=== PATIENT | male | born 1935 | race Caucasian/White ===

== ENCOUNTER 2016-08-10 16:01 | Emergency (ER) | payer MEDICARE, BC ==
[~2016-08-10] VITALS: Ht 177.8 cm; Wt 65.0 kg
[~2016-08-10 16:01] MED LIST: ADVAIR DISKU IN; AMOXICILLIN500 MG OR; CLONAZEPAM1 MG PO; DIGOXIN0.125 MG PO; DIGOXIN0.25 MG PO; FLEXERIL10 MG PO; FLONASE NASAL50 MCG; HYTRIN2 MG PO; IBUPROFEN800 MG PO; LIPITOR10 MG PO; LOPRESSOR 550 MG/TAB PO; LOPRESSOR25 M1 PO; LOPRESSOR50 M1 PO; LORTAB 7.5 PO; LYRICA50 MG PO; MEDDOSEPAK PO; METFORMIN500 MG PO; METOPROLOL SUCC50 MG OR; MIRALAX3350 N1 PO; OMEPRAZOLE20 M1 PO; PLAVIX75 MG PO; RESTORIL7.5 MG PO; ROCEPHIN 1 GM1 GM PO; TRICOR145 MG PO; XYZAL5 MG PO; ZPAK PO; ZYRTEC10 MG PO; [UNRECOGNIZED DRUG - OTHER] VI; [UNRECOGNIZED DRUG - OTHER] XX
[2016-08-10] MEDS ORDERED: METOPROLOL SUCC50 MG PO ×2 (16:25→16:28)
[2016-08-10] MEDS ORDERED: AMLODIPINE5 MG PO (16:25)
[2016-08-10] MEDS ORDERED: DIGOXIN0.125 MG PO ×2 (16:26→16:27)
[2016-08-10 16:59] LABS: HEMATOCRIT 33.4 % (39.0-50.0); HEMOGLOBIN 11.1 g/dl (14.0-18.0); IMMATURE GRANULOCYTES 0.3 % (0.0-1.0); MEAN CELL VOLUME 89.3 fL CALC (80.0-100.0); MEAN CORPUSCULAR HGB 29.7 pG CALC (26.0-32.0); MEAN CORPUSCULAR HGB CONC 33.2 g/L CALC (32.0-36.0); NEUT# 3.82 thou/uL (1.82-7.42); RED BLOOD COUNT 3.74 mill/uL (4.70-6.10); RED CELL DISTRI WIDTH 13.6 % (11.5-15.5)
[2016-08-10 17:12] LABS: ALBUMIN 4.2 g/dL (3.2-5.0); ALKALINE PHOSPHATASE 47 u/l (38-126); ANION GAP 17 (6-22 (CALC)); BILIRUBIN, TOTAL 0.5 mg/dL (0.0-1.4); BUN 21 mg/dL (8-23); BUN/CREATININE RATIO 20 (12-20 (CALC)); CALCIUM 10.7 mg/dL (8.4-10.2); CARBON DIOXIDE 29 mmol/l (22-30); CHLORIDE 100 mmol/l (95-108); CREATININE 1.1 mg/dL (0.7-1.3); GFR > 60 ML/MIN (>=60 (CALC)); GFR FOR AFR.AMER. > 60 ML/MIN (>=60 (CALC)); GLUCOSE 108 mg/dL (82-115); POTASSIUM 4.1 mmol/l (3.5-5.1); SGOT/AST 25 u/l (19-48); SGPT/ALT 40 u/l (11-66); SODIUM 141 mmol/l (137-146); TOTAL PROTEIN 6.9 g/dL (6.3-8.2)
[2016-08-10 17:45] LABS: BARBITURATES NEGATIVE (NEGATIVE); COCAINE NEGATIVE (NEGATIVE); METHADONE NEGATIVE (NEGATIVE); OXCYCODONE NEGATIVE (NEGATIVE); TETRAHYDROCANNABIONOL NEGATIVE (NEGATIVE); TRICYLIC ANTIDEPRESSANTS NEGATIVE (NEGATIVE)
[2016-08-10] MEDS ORDERED: XANAX0.25 MG PO (18:12)
[2016-08-10 18:18] LABS: URINE BILIRUBIN - DIPSTICK NEGATIVE (NEGATIVE); URINE BLOOD DIPSTICK NEGATIVE (NEGATIVE); URINE CLARITY CLEAR; URINE COLOR YELLOW; URINE GLUCOSE - DIPSTICK NEGATIVE (NEGATIVE); URINE KETONE NEGATIVE (NEGATIVE); URINE LEUK ESTERASE NEGATIVE (NEGATIVE); URINE NITRITE - DIPSTICK NEGATIVE (Negative); URINE PH 6.5 (4.5-8.0); URINE PROTEIN - DIPSTICK NEGATIVE (NEG-TRACE); URINE UROBILINOGEN - DIPSTICK 0.2 E.U./dL (0.2)
[2016-08-10 18:40] VITALS: BP 141/74
== END 2016-08-10 18:40 | disposition home or self-care (01) ==
LOC: ED 16:01
PROVIDERS: Emergency Medicine
DX: F32.9 Major depressive disorder, single episode, unspecified (principal); I10 Essential (primary) hypertension; E11.9 Type 2 diabetes mellitus without complications; Z95.0 Presence of cardiac pacemaker; Z98.890 Other specified postprocedural states

== ENCOUNTER → 2017-12-03 | Outpatient (REF) | payer MEDICARE, BC ==
[~2017-12-03] MED LIST changes: +AMLODIPINE5 MG PO; +METOPROLOL SUCC50 MG PO; +XANAX0.25 MG PO
[2017-12-03 08:24] LABS: ANION GAP 15 (6-22 (CALC)); BUN 20 mg/dL (8-23); BUN/CREATININE RATIO 20 (12-20 (CALC)); CARBON DIOXIDE 28 mmol/l (22-30); CHLORIDE 101 mmol/l (95-108); GFR > 60 ML/MIN (>=60 (CALC)); GFR FOR AFR.AMER. > 60 ML/MIN (>=60 (CALC)); POTASSIUM 3.9 mmol/l (3.5-5.1); SODIUM 141 mmol/l (137-146)
== END | disposition home or self-care (01) ==
LOC: LAB 06:44
PROVIDERS: ATTEND Internal Medicine
DX: R53.81 Other malaise (principal); E11.42 Type 2 diabetes mellitus with diabetic polyneuropathy; I10 Essential (primary) hypertension

== ENCOUNTER → 2018-04-09 | Outpatient (REF) | payer MEDICARE, BC | END | disposition home or self-care (01) | LOC: CT 09:37 | PROVIDERS: ATTEND Nurse Practitioner Family | DX: R05 Cough (principal) ==

== ENCOUNTER → 2018-04-16 | Outpatient (REF) | payer MEDICARE, BC | END | disposition home or self-care (01) | LOC: RT 07:41 | PROVIDERS: ATTEND Internal Medicine | DX: R05 Cough (principal) ==

== ENCOUNTER 2019-03-25 | Day surgery (SDC) | payer MEDICARE ==
[~2019-03-25] MED LIST changes: +ARNUITY EL50 MCG/ACT; +CLOBETASOL0.05 % EX; +IRON PO; +LEVOCETIRIZINE D5 MG; +LIPITOR80 M1 PO; +MONTELUKAST SOD10 MG PO; +OMEPRAZOLE DR40 MG; +PROAIR DIG108 MCG/AC IN; +SG ASA LOW81 M1 PO
== END 2019-03-25 11:40 | disposition home or self-care (01) ==
PROC: 0DB68ZX Excision of Stomach, Via Natural or Artificial Opening Endoscopic, Diagnostic (ICD-10-PCS; principal; 2019-03-25)
PROC: 0DB78ZX Excision of Stomach, Pylorus, Via Natural or Artificial Opening Endoscopic, Diagnostic (ICD-10-PCS; 2019-03-25)
PROC: 0DJD8ZZ Inspection of Lower Intestinal Tract, Via Natural or Artificial Opening Endoscopic (ICD-10-PCS; 2019-03-25)
DX: K29.51 Unspecified chronic gastritis with bleeding (principal); B96.81 Helicobacter pylori [H. pylori] as the cause of diseases classified elsewhere; K31.7 Polyp of stomach and duodenum; K44.9 Diaphragmatic hernia without obstruction or gangrene; K57.31 Diverticulosis of large intestine without perforation or abscess with bleeding; K64.8 Other hemorrhoids; E11.9 Type 2 diabetes mellitus without complications; I10 Essential (primary) hypertension; Z79.84 Long term (current) use of oral hypoglycemic drugs

== ENCOUNTER 2019-07-07 07:51 | Inpatient (IN) | payer MEDICARE ==
[~2019-07-07] VITALS: Ht 177.8 cm; Wt 64.0 kg
[2019-07-07 09:03] LABS: MEAN CELL VOLUME 94.8 fL CALC (80.0-100.0); MEAN CORPUSCULAR HGB CONC 29.5 g/dL CAL (32.0-36.0); RED BLOOD COUNT 2.11 mill/uL (4.70-6.10); RED CELL DISTRI WIDTH 17.8 % (11.5-15.5)
[2019-07-07 09:16] LABS: HEMOGLOBIN 5.9 g/dl (14.0-18.0)
[2019-07-07 09:33] LABS: ALBUMIN 3.7 g/dL (3.2-5.0); ALKALINE PHOSPHATASE 71 u/l (38-126); ANION GAP 15 (6-22 (CALC)); BILIRUBIN, TOTAL 0.5 mg/dL (0.0-1.4); BUN 15 mg/dL (8-23); BUN/CREATININE RATIO 16 (12-20 (CALC)); CALCULATED LDLCHOLESTEROL 32 mg/dL (62-129 (CALC)); CARBON DIOXIDE 24 mmol/l (22-30); CHLORIDE 98 mmol/l (95-108); CHOLESTEROL HDL RATIO 3.7 (<4.4 (CALC)); GFR > 60 ML/MIN (>=60 (CALC)); GFR FOR AFR.AMER. > 60 ML/MIN (>=60 (CALC)); HDL CHOLESTEROL 24 mg/dL (>=40); SGOT/AST 18 u/l (19-48); SODIUM 134 mmol/l (137-146); TOTAL CHOLESTEROL 89 mg/dl (0-199); TOTAL PROTEIN 6.1 g/dL (6.3-8.2); TOTAL TRIGLYCERIDES 163 mg/dl (30-149); VLDL CHOLESTROL 33 mg/dl (0-38 (CALC))
--- NOTE | 2019-07-07 14:00 | NUR ---
PT IS A DIRECT ADMIT. PT ORIENTED TO ROOM, CALL LIGHT, TV AND LIGHT REMOTE. PT ALSO ORIENTED TO BED CONTROLS. POC REVIEWED WITH PT. PT IS ABLE TO MAKE HIS NEEDS KNOWN. ALERT AND ORIENTED X 4. FOAM RUBBER FABRICATOR WILL CONTINUE TO MONITOR.
[2019-07-07 14:21] VITALS: BP 127/59
[2019-07-07] MEDS ORDERED: PROTONIX40 M2 PO (15:38)
[2019-07-07] MEDS ORDERED: BREO ELLIPTA 101 INH IN (15:40)
[2019-07-07] MEDS ORDERED: BUDESONID2 IN (15:41)
[2019-07-07] MEDS ORDERED: FERR SULFATE325 MG PO (15:42)
[2019-07-07] MEDS ORDERED: METOPROL TAR25 MG PO (15:42)
--- NOTE | 2019-07-07 16:29 | NUR ---
PT RESTING COMFORTABLY IN ROOM. URINE COLLECTED FOR URINALYSIS. PT C/O AIR CONDITIONER BEING TOO NOISY. NIKOLAS NOTIFIED MAINTAINANCE.
[2019-07-07 17:13] LABS: URINE BILIRUBIN - DIPSTICK NEGATIVE (NEGATIVE); URINE BLOOD DIPSTICK NEGATIVE (NEGATIVE); URINE CLARITY CLEAR; URINE COLOR YELLOW; URINE GLUCOSE - DIPSTICK NEGATIVE (NEGATIVE); URINE KETONE NEGATIVE (NEGATIVE); URINE LEUK ESTERASE NEGATIVE (Negative); URINE NITRITE - DIPSTICK NEGATIVE (Negative); URINE PH 5.5 (4.5-8.0); URINE PROTEIN - DIPSTICK NEGATIVE (NEG-TRACE); URINE UROBILINOGEN - DIPSTICK 0.2 E.U./dL (0.2)
--- NOTE | 2019-07-07 17:49 | NUR ---
ENVIRONMENTAL MONITORING SPECIALIST CALLED LAB TO FIND OUT WHEN BLOOD WOULD BE READY FOR EXECUTIVE ACCOUNT MANAGER. ENVIRONMENTAL MONITORING SPECIALIST NOTIFIED BY OS THAT BLOOD SHOULD BE READY BY 1999.
[2019-07-07 19:00] VITALS: BP 126/59
[2019-07-07 20:02] LABS: HEMATOCRIT 16.2 % (39.0-50.0); HEMOGLOBIN 4.9 g/dl (14.0-18.0)
--- NOTE | 2019-07-07 20:45 | NUR ---
PT MEDICATED ORDERS PROVIDE. RECEIVED PHONE CALL FROM LAB REPORTING BLOOD IS READY TO BE PICKED UP
[2019-07-07 20:55] VITALS: BP 144/65
--- NOTE | 2019-07-07 21:16 | NUR ---
FIRST UNIT OF PRBC STARTED AT THIS TIME. PT INSTRUCTED ON REPORTING SYMPTOMS, POSS NEG REACTIONS. PT VERBALIZED UNDERSTANDING.
[2019-07-07 21:28] VITALS: BP 139/70
--- NOTE | 2019-07-07 21:30 | NUR ---
PT V/S ASSESSED FOR 15 MINUTES INTO TRANSFUSION. PT DENIES ANY ADVERSE SYMPTOMS AND APPEARS STABLE, NO S/O DISTRESS NOTED. INSTRUCTED PT TO CALL ANY NEEDS MAY ARISE. PT VERBALIZED UNDERSTANDING OF POSS NEG AFFECTS.
[2019-07-07 22:13] VITALS: BP 143/63
--- NOTE | 2019-07-07 23:22 | NUR ---
PT APPEARS STABLE, NO S/O DISTRESS. AWOKE TO MY ENTERING ROOM, DENIED ANY NEEDS AT THIS TIME.
[2019-07-07 23:39] VITALS: BP 137/80
[2019-07-08] VITALS (10 sets, daily range): BP systolic 131–158; BP diastolic 63–82
--- NOTE | 2019-07-08 00:39 | NUR ---
FIRST UNIT OF PRBC COMPLETED AT THIS TIME. PT V/S ASSESSED, DENIES ANY S/O REACTION. PT APPEARS STABLE.
--- NOTE | 2019-07-08 01:07 | NUR ---
ATTEMPTS WERE MADE TO OBTAIN BLOOD FROM LAB, DIFFICULTY W/COMPUTER, I WAS INSTRUCTED THAT THEY WILL CALL WHEN AVAILABLE. AWAITING AVAILABILITY.
--- NOTE | 2019-07-08 01:27 | NUR ---
2ND UNIT OF PRBC STARTED AT THIS TIME. WILL DIRECTLY MONITOR PT FOR 15 MINUTES, FOLLOW-UP W/VS. AND CONTINUE TO MONITOR CLOSELY THERAFTER. PT REMINDED OF S/O REACTION TO WATCH FOR. VERBALIZED UNDERSTANDING.
--- NOTE | 2019-07-08 01:42 | NUR ---
V/S REASSESSED AT THIS TIME. PT STABLE. DENIES ANY DISTRESS OR NEEDS. URINAL
--- NOTE | 2019-07-08 02:27 | NUR ---
V/S ASSESSED AT THIS TIME. PT SLEEPING, NO S/O DISTRESS NOTED. PT AWOKE, DENIED ANY NEEDS.
--- NOTE | 2019-07-08 04:07 | NUR ---
PT SLEEPING, NO S/O DISTRESS NOTED. PRBC ARE STILL RUNNING TO LAC/SITE APPEARS HEALTHY.
--- NOTE | 2019-07-08 04:53 | NUR ---
2ND UNIT OF PRBC TRANSFUSION COMPLETE AT THIS TIME. PT TOLERATED WELL. DENIES ANY DESTRESS. V/S STABLE.
[2019-07-08 07:22] LABS: HEMOGLOBIN 8.7 g/dl (14.0-18.0); IMMATURE GRANULOCYTES 0.4 % (0.0-5.0); MEAN CORPUSCULAR HGB CONC 32.2 g/dL CAL (32.0-36.0); NEUT# 2.82 thou/uL (1.82-7.42); RED CELL DISTRI WIDTH 15.9 % (11.5-15.5)
[2019-07-08 08:04] LABS: ALBUMIN 3.4 g/dL (3.2-5.0); ALKALINE PHOSPHATASE 64 u/l (38-126); ANION GAP 11 (6-22 (CALC)); BILIRUBIN, TOTAL 0.7 mg/dL (0.0-1.4); BUN 13 mg/dL (8-23); BUN/CREATININE RATIO 14 (12-20 (CALC)); CARBON DIOXIDE 27 mmol/l (22-30); CHLORIDE 101 mmol/l (95-108); CREATININE 0.9 mg/dL (0.7-1.3); GFR > 60 ML/MIN (>=60 (CALC)); GFR FOR AFR.AMER. > 60 ML/MIN (>=60 (CALC)); POTASSIUM 3.7 mmol/l (3.5-5.1); SGOT/AST 20 u/l (19-48); SODIUM 135 mmol/l (137-146); TOTAL PROTEIN 5.7 g/dL (6.3-8.2)
--- NOTE | 2019-07-08 10:41 | NUR ---
TELE JAPANESE PROFESSOR JUST REPORTED 30 SECS V-TACH, PT ASSESED, NO C/O DISCOMFORT, RESTING IN SUPINE POSITION, VS MEASURED = 97.5, 71, 18, 148/82, 96% R/A ASYMPTOMATIC AT THIS TIME, NOTIFIED AND WROTE ORDERS.
--- NOTE | 2019-07-08 12:00 | NUR ---
AMBLATES HALLWAY FREQUENTLY, GIAT STEADY, NO C/O DISCOMFORT,
--- NOTE | 2019-07-08 12:35 | NUR ---
MEDICAL TEAM ROUNDED DISCUSSED PLAN, WROTE ORDERS, PT STATED UNDERSTANDING.
[2019-07-08 12:46] LABS: HEMATOCRIT 27.7 % (39.0-50.0); HEMOGLOBIN 8.9 g/dl (14.0-18.0)
[2019-07-08 13:03] LABS: ANION GAP 10 (6-22 (CALC)); BUN 13 mg/dL (8-23); BUN/CREATININE RATIO 14 (12-20 (CALC)); CARBON DIOXIDE 28 mmol/l (22-30); CHLORIDE 101 mmol/l (95-108); CREATININE 0.9 mg/dL (0.7-1.3); GFR > 60 ML/MIN (>=60 (CALC)); GFR FOR AFR.AMER. > 60 ML/MIN (>=60 (CALC)); MAGNESIUM 1.8 mg/dL (1.6-2.3); POTASSIUM 3.9 mmol/l (3.5-5.1); SODIUM 135 mmol/l (137-146)
--- NOTE | 2019-07-08 16:00 | NUR ---
RELAXING IN BED, ALL NEEDS MET.
[2019-07-08 18:24] LABS: HEMATOCRIT 30.1 % (39.0-50.0); HEMOGLOBIN 9.6 g/dl (14.0-18.0)
--- NOTE | 2019-07-08 19:05 | NUR ---
REPORT FROM BENSON RUBALCAVA. PT NOTED SITTING UP IN BED. ALERT AND ORIENTED. NO APPARENT DISTRESS NOTED. PT DENIES ANY PAIN OR DISCOMFORT AT THIS TIME. IV SITE APPEARS HEALTHY. DISCUSSED POC. PT VERBALIZED UNDERSTANDING. CALL LIGHT WITHIN REACH. WILL CONTINUE TO MONITOR.
--- NOTE | 2019-07-08 23:16 | NUR ---
PT RESTING IN BED WITH EYES CLOSED. NO APPARENT DISTRESS NOTED. CALL LIGHT WITHIN REACH. WILL CONTINUE TO MONITOR.
[2019-07-09 00:28] LABS: HEMATOCRIT 26.2 % (39.0-50.0); HEMOGLOBIN 8.2 g/dl (14.0-18.0)
--- NOTE | 2019-07-09 03:07 | NUR ---
PT RESTING IN BED WITH EYES CLOSED. NO APPARENT DISTRESS NOTED. CALL LIGHT WITHIN REACH. WILL CONTINUE TO MONITOR.
[2019-07-09 03:40] VITALS: BP 148/62
[2019-07-09 07:05] LABS: HEMATOCRIT 28.5 % (39.0-50.0)
[2019-07-09 07:12] VITALS: BP 154/81
--- NOTE | 2019-07-09 07:12 | NUR ---
PT AMBULATING IN ROOM. A&O X3. NO DISTRESS NOTED. PT WISHING TO AMBULATE IN HALLWAY, MASK GIVEN. STEADY GAIT OBSERVED. PT DENIES ANY WEAKNESS OR DIZZINESS AT THIS TIME. ASSESSMENT COMPLETED. DISCUSSED POC. CALL LIGHT IN REACH. CONTINUE TO MONITOR.
[2019-07-09 11:12] VITALS: BP 140/47
--- NOTE | 2019-07-09 12:22 | NUR ---
D/C INSTRUCTIONS GIVEN TO PT, PT VERBALIZED UNDERSTANDING. IV INTACT UPON REMOVAL.
--- NOTE | 2019-07-09 12:30 | NUR ---
Discharge instructions given. Patient verbalizes understanding of same. Discharged in stable condition via ambulatory to home with staff. All belongings sent with pt.
== END 2019-07-09 12:31 | disposition home or self-care (01) | DRG 811 ==
LOC: LAB 07:51 → INF 07:51 → MS2 13:07
PROVIDERS: Nurse Practitioner; Nurse Practitioner Family; ADMIT Internal Medicine; ATTEND Internal Medicine
PROC: 30233N1 Transfusion of Nonautologous Red Blood Cells into Peripheral Vein, Percutaneous Approach (ICD-10-PCS; principal; 2019-07-07)
PROC: 30233N1 Transfusion of Nonautologous Red Blood Cells into Peripheral Vein, Percutaneous Approach (ICD-10-PCS; 2019-07-07)
DX: D50.0 Iron deficiency anemia secondary to blood loss (chronic) (principal); K55.21 Angiodysplasia of colon with hemorrhage; I47.2 Ventricular tachycardia; E11.9 Type 2 diabetes mellitus without complications; I10 Essential (primary) hypertension; I25.10 Atherosclerotic heart disease of native coronary artery without angina pectoris; Z95.0 Presence of cardiac pacemaker; Z87.891 Personal history of nicotine dependence; Z79.84 Long term (current) use of oral hypoglycemic drugs
CPT/HCPCS: P9016

== ENCOUNTER 2020-01-05 10:57 | Observation (INO) | payer MEDICARE ==
[~2020-01-05] VITALS: Ht 177.8 cm; Wt 60.0 kg
[~2020-01-05 10:57] MED LIST changes: +BREO ELLIPTA 101 INH IN; +BUDESONID2 IN; +FERR SULFATE325 MG PO; +METOPROL TAR25 MG PO; +PROTONIX40 M2 PO
--- NOTE | 2020-01-05 11:10 | NUR ---
PATIENT TO ROOM VIA WHEELCHAIR AND PHYSICIAN NOTIFIED OF PATIENT STATUS
[2020-01-05 11:46] LABS: HEMATOCRIT 35.5 % (39.0-50.0); HEMOGLOBIN 11.4 g/dl (14.0-18.0); IMMATURE GRANULOCYTES 0.6 % (0.0-5.0); MEAN CELL VOLUME 94.2 fL CALC (80.0-100.0); MEAN CORPUSCULAR HGB 30.2 pG CALC (26.0-32.0); MEAN CORPUSCULAR HGB CONC 32.1 g/dL CAL (32.0-36.0); NEUT# 15.95 thou/uL (1.82-7.42); RED BLOOD COUNT 3.77 mill/uL (4.70-6.10); RED CELL DISTRI WIDTH 13.6 % (11.5-15.5)
[2020-01-05 12:07] LABS: ALBUMIN 4.4 g/dL (3.2-5.0); ALKALINE PHOSPHATASE 71 u/l (38-126); ANION GAP 14 (6-22 (CALC)); BUN 14 mg/dL (8-23); BUN/CREATININE RATIO 15 (12-20 (CALC)); CARBON DIOXIDE 30 mmol/l (22-30); CHLORIDE 98 mmol/l (95-108); CREATININE 0.9 mg/dL (0.7-1.3); GFR > 60 ML/MIN (>=60 (CALC)); GFR FOR AFR.AMER. > 60 ML/MIN (>=60 (CALC)); POTASSIUM 4.6 mmol/l (3.5-5.1); SGOT/AST 25 u/l (19-48); SODIUM 137 mmol/l (137-146); TOTAL PROTEIN 7.2 g/dL (6.3-8.2)
[2020-01-05 12:08] LABS: BILIRUBIN, TOTAL 1.1 mg/dL (0.0-1.4)
--- NOTE | 2020-01-05 12:30 | NUR ---
VITALS STABLE ON MONITOR. WARM BLANKET PROVIDED. IV MEDS AND INFUSING WITHOUT COMPLICATIONS. AT BEDSIDE.
[2020-01-05 13:04] LABS: URINE BILIRUBIN - DIPSTICK NEGATIVE (NEGATIVE); URINE BLOOD DIPSTICK MODERATE (NEGATIVE); URINE COLOR YELLOW; URINE GLUCOSE - DIPSTICK NEGATIVE (NEGATIVE); URINE KETONE NEGATIVE (NEGATIVE); URINE LEUK ESTERASE SMALL (NEGATIVE); URINE NITRITE - DIPSTICK POSITIVE (Negative); URINE PH 7.5 (4.5-8.0); URINE PROTEIN - DIPSTICK 30 mg/dL (NEG-TRACE); URINE SPECIFIC GRAVITY 1.015; URINE UROBILINOGEN - DIPSTICK 0.2 E.U./dL (0.2)
[2020-01-05 13:12] LABS: URINE BACTERIA MANY hpf; URINE WBC 20-50 WBC/hpf (0-5)
--- NOTE | 2020-01-05 13:30 | NUR ---
PT BED LINENS CHANGED DUE TO EXCESSIVE URINATION. REMAINS AT BEDSIDE. VITALS STABLE ON MONITOR.
--- NOTE | 2020-01-05 14:30 | NUR ---
PT REMOVED IV. ATTEMPTED TO RESTART. ONE EPISODE OF VOMITING. CONTINUING TO MONITOR.
[2020-01-05] MEDS ORDERED: GABAPENTIN100 MG PO (14:38)
--- NOTE | 2020-01-05 15:27 | NUR ---
PT RESTING. NO DISTRESS. VITALS STABLE.
--- NOTE | 2020-01-05 16:30 | NUR ---
PT RESTING. AT BEDSIDE. BED IN LOW POSITION.
--- NOTE | 2020-01-05 17:30 | NUR ---
IV FLUIDS CONTINUE TO INFUSE WITHOUT DIFFICULTY.
--- NOTE | 2020-01-05 18:22 | NUR ---
ER CALL REPORT AT THIS TIME BRINGING PATIENT VIA WHEELCHAIR TO UNIT.
--- NOTE | 2020-01-05 18:23 | NUR ---
REPORT CALLED TO M/S
[2020-01-05 18:30] VITALS: BP 200/88
--- NOTE | 2020-01-05 18:30 | NUR ---
PATIENT RECEIVED BY ED. PATIENT ORIENTED TO ROOM, CALL LIGHT AND BED ALARM IN PLACE. PATIENT DENIES ANY NEEDS AND VERBALIZES UNDERSTANDING OF USING CALL LIGHT FOR ALL ASSISTANCE.
--- NOTE | 2020-01-05 19:21 | NUR ---
PT LAYING IN BED WITH EYES CLOSED. NO S/O DISTRESS NOTED AT THIS TIME. WILL FOLLOW-UP WITH ASSESSMENT AND MEDICATIONS. CALL LIGHT AT SIDE.
[2020-01-05 20:06] VITALS: BP 183/90
--- NOTE | 2020-01-05 20:35 | NUR ---
ASSESSMENT COMPLETED AND PT MEDICATED ORDERS PROVIDE. PT IS LOC X3, BUT HAS MILD CONFUSION. HE IS UNABLE TO ANSWER MOST OF MY ADMISSION QUESTIONS AND IS VERY HARD OF HEARING. UNABLE TO TELL ME WHEN HIS LAST BM WAS. ASSISTED PT DRINK WATER, BUT HE REFUSED HIS DINNER TRAY OR ANY SNACK AT THIS TIME. DINNER TRAY AT BEDSIDE UNTOUCHED.
--- NOTE | 2020-01-05 23:40 | NUR ---
BED ALARM SOUNDED, PT FOUND ATTEMPTING TO GET OUT OF BED TO USE URINAL. ASSISTED PT USING URINAL 200CC OF CLEAR YELLOW URINE OUTPUT. BEDDING AND GOWN ARE ALSO WET. PT CLEANED OF URINE AND BEDDING/GOWN CHANGED. PT IS BACK IN BED WITH BED ALARM ON AND CALL LIGHT AT SIDE.
[2020-01-06] VITALS (7 sets, daily range): BP systolic 132–169; BP diastolic 56–89
--- NOTE | 2020-01-06 02:00 | NUR ---
IV SOUNDING, SITE IS POSITIONAL, ASSISTED PT UNTANGLING TUBING AND STRAIGHTENING ARM. NO S/O DISTRESS, PT WAS SLEEPING. CALL LIGHT AT SIDE AND BED ALARM IS ON.
--- NOTE | 2020-01-06 04:34 | NUR ---
PT SLEEPING, NO S/O DISTRESS NOTED. IVPUMP CLEARED. BED ALARM ON AND CALL LIGHT AT SIDE.
[2020-01-06 06:08] LABS: HEMATOCRIT 36.9 % (39.0-50.0); HEMOGLOBIN 11.8 g/dl (14.0-18.0); MEAN CELL VOLUME 94.6 fL CALC (80.0-100.0); MEAN CORPUSCULAR HGB 30.3 pG CALC (26.0-32.0); NEUT# 14.61 thou/uL (1.82-7.42); RED BLOOD COUNT 3.9 mill/uL (4.70-6.10); RED CELL DISTRI WIDTH 13.8 % (11.5-15.5)
[2020-01-06 06:31] LABS: ALBUMIN 3.8 g/dL (3.2-5.0); ALKALINE PHOSPHATASE 72 u/l (38-126); ANION GAP 14 (6-22 (CALC)); BILIRUBIN, TOTAL 1.4 mg/dL (0.0-1.4); BUN 13 mg/dL (8-23); BUN/CREATININE RATIO 15 (12-20 (CALC)); CARBON DIOXIDE 25 mmol/l (22-30); CHLORIDE 103 mmol/l (95-108); CREATININE 0.8 mg/dL (0.7-1.3); GFR > 60 ML/MIN (>=60 (CALC)); GFR FOR AFR.AMER. > 60 ML/MIN (>=60 (CALC)); MAGNESIUM 1.7 mg/dL (1.6-2.3); POTASSIUM 3.7 mmol/l (3.5-5.1); SGOT/AST 24 u/l (19-48); SODIUM 138 mmol/l (137-146); TOTAL PROTEIN 6.3 g/dL (6.3-8.2)
--- NOTE | 2020-01-06 07:26 | NUR ---
PATEINT IN BED RESTING WITH EYES OPEN. PATIENT ALERT TO NAME AND PLACE AT THIS TIME STATES HAS NO PAIN. SAFETY MEASURES ARE IN PLACE CALL LIGHT NEAR, SIDERAILS UPX2 BED ALARM ENGAGED.
--- NOTE | 2020-01-06 08:08 | NUR ---
AT BEDSIDE DISCUSSING POC.
--- NOTE | 2020-01-06 10:03 | NUR ---
PT SPOUSE NOTIFIED OF NEED FOR HOME BREO TO BE BROUGHT IN FOR VERIFICATION AND ADMINISTARTION AND VERBALIZES UNDERSTANDING.
--- NOTE | 2020-01-06 11:42 | NUR ---
BLOOD PRESSURE TAKEN AT THIS TIME WITH MANUAL CUFF: BP 158/72.
--- NOTE | 2020-01-06 11:48 | NUR ---
PATIENT LAYING IN BED AT THIS TIME. DENIES ALL NEEDS AT BEDSIED CALL LIGHT NEAR SIDERAILS UP AT THIS TIME.
--- NOTE | 2020-01-06 15:33 | NUR ---
PATIENT IN BED AT THIS TIME DENIES ANY NEEDS. ALL SAFETY MEASURES ARE IN PLACE SIDERAILS UP X 2 CALL LIGHT NEAR.
--- NOTE | 2020-01-06 19:46 | NUR ---
PT SLEEPING AT THIS TIME. IVF RUNNING @75 TO LAC, SITE APPEARS PATENT AND HEALTHY. NO S/O DISTRESS NOTED. CALL LIGHT W/IN REACH. DINNER TRAY AT BEDSIDE UNTOUCHED. WHEN PT AWAKES I WILL ENCOURAGE PT TO EAT AND ASSIST NEEDED.
--- NOTE | 2020-01-06 21:21 | NUR ---
PT CLEANED OF INCONTNINENT URINE, 100CC OF DARK YELLOW URINE IN URINAL AT BEDSIDE. BEDDING CHANGED AT THIS TIME DUE TO URINE SPILLAGE. PT MEDICATED ORDERS PROVIDE WITH PM MEDICATIONS. ACCU CHECK 119, INSULIN HELD AT THIS TIME. DINNER TRAY AT BS, PT REFUSES ANY OF IT. DENIES NAUSEA AT THIS TIME. CALL LIGHT AT SIDE AND PT ENCOURAGED TO CALL NEEDS ARISE. BED ALARM PLACED ON.
--- NOTE | 2020-01-06 22:35 | NUR ---
IV PUMP SOUNDING. I REMINDED PT TO STRAIGHTEN HIS ARM OUT, IV IS POSITIONAL. HE FOLLOWED COMMAND. NO S/O DISTRESS NOTED, PT IS SLEEPING. CALL LIGHT AT SIDE.
[2020-01-07 00:07] VITALS: BP 122/52
[2020-01-07 03:52] VITALS: BP 157/72
[2020-01-07 05:38] LABS: MEAN CELL VOLUME 95.2 fL CALC (80.0-100.0); MEAN CORPUSCULAR HGB 30.7 pG CALC (26.0-32.0); MEAN CORPUSCULAR HGB CONC 32.2 g/dL CAL (32.0-36.0); RED BLOOD COUNT 3.13 mill/uL (4.70-6.10)
--- NOTE | 2020-01-07 05:40 | NUR ---
PT CLEANED OF INCONTINENT URINE AND PROVIDED YOSELYN-CARE. BEDDING CHANGED AT THIS TIME. PT TOLERATED WELL. LIGHTS ARE BACK OFF AND CALL LIGHT AT SIDE WITH BED ALARM ON.
[2020-01-07 05:42] LABS: HEMATOCRIT 29.8 % (39.0-50.0); HEMOGLOBIN 9.6 g/dl (14.0-18.0)
[2020-01-07 06:02] LABS: ANION GAP 8 (6-22 (CALC)); BUN 14 mg/dL (8-23); BUN/CREATININE RATIO 13 (12-20 (CALC)); CARBON DIOXIDE 28 mmol/l (22-30); CHLORIDE 105 mmol/l (95-108); CREATININE 1.1 mg/dL (0.7-1.3); GFR > 60 ML/MIN (>=60 (CALC)); GFR FOR AFR.AMER. > 60 ML/MIN (>=60 (CALC)); MAGNESIUM 1.8 mg/dL (1.6-2.3); POTASSIUM 3.4 mmol/l (3.5-5.1); SODIUM 136 mmol/l (137-146)
--- NOTE | 2020-01-07 07:10 | NUR ---
REPORT RECEIVED FROM KHADAR NOLAND. PT RESTING IN BED, NO S/S OF DISTRESS AT THIS TIME. SAFETY PRECAUTIONS IN PLACE. WILL CONTINUE TO MONITOR.
--- NOTE | 2020-01-07 08:48 | NUR ---
PT RESTING IN BED, AT THE BEDSIDE. PT BOOSTED UP IN BED AND REPOSTIONED FOR BREAKFAST. PT IS ALERT AND ORIENTED TO PERSON AND PLACE. RESPIRATIONS ARE EVEN AND UNLABORED ON RA. LUNGS SOUND CLEAR. PEDAL PULSES ARE STRONG. PT DENIES ANY PAIN OR DISCOMFORT AT THIS TIME. SAFETY PRECAUTIONS IN PLACE. WILL CONTINUE TO MONITOR.
[2020-01-07 09:14] VITALS: BP 152/71
[2020-01-07] MEDS ORDERED: ERTAPENEM1 GM IV (10:19)
[2020-01-07 11:02] VITALS: BP 146/75
--- NOTE | 2020-01-07 12:01 | NUR ---
PT RESTING IN BED. AT BEDSIDE. NO S/S OF DISTRESS AT THIS TIME. WILL CONTINUE TO MONITOR.
[2020-01-07 16:01] VITALS: BP 168/66
--- NOTE | 2020-01-07 16:20 | NUR ---
PT RESTING IN BED, AT BEDSIDE. PT PROVIDED WITH DISCHARGE TEACHING, PT DENIES ANY CONCERNS OR QUESTIONS. IV STAYING IN PLACE PER MD ORDERS.
--- NOTE | 2020-01-07 16:33 | NUR ---
Discharge instructions given. Patient verbalizes understanding of same. Discharged in stable condition via Wheelchair to Home with spouse. All belongings sent with pt.
== END 2020-01-07 16:37 | disposition home health service (06) ==
LOC: ED 10:57 → ED-I 13:25 → ED 13:25 → ED-I 14:45 → ED 16:06 → MS2 16:07
PROVIDERS: Family Medicine; Nurse Practitioner; ADMIT Internal Medicine; ATTEND Internal Medicine
DX: A41.9 Sepsis, unspecified organism (principal); N39.0 Urinary tract infection, site not specified; I10 Essential (primary) hypertension; E11.9 Type 2 diabetes mellitus without complications; I49.5 Sick sinus syndrome; E87.2 Acidosis; I25.10 Atherosclerotic heart disease of native coronary artery without angina pectoris; B96.20 Unspecified Escherichia coli [E. coli] as the cause of diseases classified elsewhere; Z95.0 Presence of cardiac pacemaker; Z16.12 Extended spectrum beta lactamase (ESBL) resistance; Z79.84 Long term (current) use of oral hypoglycemic drugs; Z87.891 Personal history of nicotine dependence; Z20.828 Contact with and (suspected) exposure to other viral communicable diseases
CPT/HCPCS: J1335; J1650

== ENCOUNTER 2020-10-27 13:10 | Outpatient (REF) | payer MEDICARE ==
[~2020-10-27 13:10] MED LIST changes: +ERTAPENEM1 GM IV; +GABAPENTIN100 MG PO
== END 2020-10-27 15:24 | disposition home or self-care (01) ==
LOC: MSOP 13:10 → INF 13:30 → MSOP 15:24
PROVIDERS: ATTEND Internal Medicine
DX: N18.1 Chronic kidney disease, stage 1 (principal); D50.9 Iron deficiency anemia, unspecified
CPT/HCPCS: Q0138

== ENCOUNTER 2021-01-01 16:31 | Emergency (ER) | payer MEDICARE ==
[~2021-01-01] VITALS: Ht 177.8 cm; Wt 70.0 kg
[2021-01-01 17:24] LABS: IMMATURE GRANULOCYTES 0.2 % (0.0-5.0); MEAN CELL VOLUME 96.5 fL CALC (80.0-100.0); MEAN CORPUSCULAR HGB 27.7 pG CALC (26.0-32.0); MEAN CORPUSCULAR HGB CONC 28.7 g/dL CAL (32.0-36.0); NEUT# 4.02 thou/uL (1.82-7.42); RED BLOOD COUNT 1.73 mill/uL (4.70-6.10); RED CELL DISTRI WIDTH 15.4 % (11.5-15.5)
[2021-01-01 17:27] LABS: HEMATOCRIT 16.7 % (39.0-50.0); HEMOGLOBIN 4.8 g/dl (14.0-18.0)
[2021-01-01 17:38] LABS: PROTHROMBIN TIME 10.8 SECONDS (9.0-12.5)
[2021-01-01 17:41] LABS: ALBUMIN 3.8 g/dL (3.2-5.0); ALKALINE PHOSPHATASE 43 u/l (38-126); ANION GAP 12 (6-22 (CALC)); BILIRUBIN, TOTAL 0.4 mg/dL (0.0-1.4); BUN 27 mg/dL (8-23); BUN/CREATININE RATIO 22 (12-20 (CALC)); CARBON DIOXIDE 26 mmol/l (22-30); CHLORIDE 99 mmol/l (95-108); CREATININE 1.2 mg/dL (0.7-1.3); GFR 58 ML/MIN (>=60 (CALC)); GFR FOR AFR.AMER. > 60 ML/MIN (>=60 (CALC)); POTASSIUM 4.8 mmol/l (3.5-5.1); SGOT/AST 26 u/l (19-48); SODIUM 132 mmol/l (137-146); TOTAL PROTEIN 6.2 g/dL (6.3-8.2)
[2021-01-01 19:26] VITALS: BP 153/67
== END 2021-01-01 19:26 | disposition short-term general hospital (02) ==
LOC: ED 16:31
DX: K92.2 Gastrointestinal hemorrhage, unspecified (principal); D64.9 Anemia, unspecified; I10 Essential (primary) hypertension; E11.9 Type 2 diabetes mellitus without complications; I49.5 Sick sinus syndrome; I25.10 Atherosclerotic heart disease of native coronary artery without angina pectoris; Z95.0 Presence of cardiac pacemaker; Z79.84 Long term (current) use of oral hypoglycemic drugs; Z20.822 Contact with and (suspected) exposure to COVID-19
CPT/HCPCS: S0164

== ENCOUNTER 2021-01-23 13:48 | Inpatient (IN) | payer MEDICARE ==
[~2021-01-23] VITALS: Ht 177.8 cm; Wt 58.0 kg
[~2021-01-23 13:48] MED LIST changes: -METOPROL TAR25 MG PO; +TOPROL XL50 MG PO
--- NOTE | 2021-01-23 14:06 | NUR ---
PATIENT TO ROOM VIA WHEELCHAIR AND PHYSICIAN NOTIFIED OF STATUS
[2021-01-23 14:27] LABS: URINE BILIRUBIN - DIPSTICK NEGATIVE (NEGATIVE); URINE BLOOD DIPSTICK NEGATIVE (NEGATIVE); URINE COLOR YELLOW; URINE GLUCOSE - DIPSTICK NEGATIVE (NEGATIVE); URINE KETONE NEGATIVE (NEGATIVE); URINE LEUK ESTERASE SMALL (NEGATIVE); URINE NITRITE - DIPSTICK POSITIVE (Negative); URINE PROTEIN - DIPSTICK NEGATIVE (NEG-TRACE); URINE SPECIFIC GRAVITY <=1.005; URINE UROBILINOGEN - DIPSTICK 0.2 E.U./dL (0.2)
[2021-01-23 14:28] LABS: URINE BACTERIA MANY hpf; URINE EPITHELIAL CELLS FEW EPI/hpf (0-FEW)
[2021-01-23 14:33] LABS: IMMATURE GRANULOCYTES 0.6 % (0.0-5.0); MEAN CELL VOLUME 93.5 fL CALC (80.0-100.0); MEAN CORPUSCULAR HGB CONC 28.9 g/dL CAL (32.0-36.0); NEUT# 5.77 thou/uL (1.82-7.42); RED BLOOD COUNT 1.85 mill/uL (4.70-6.10); RED CELL DISTRI WIDTH 16.7 % (11.5-15.5)
[2021-01-23 14:35] LABS: HEMATOCRIT 17.3 % (39.0-50.0)
[2021-01-23 14:44] LABS: PROTHROMBIN TIME 10.4 SECONDS (9.0-12.5)
[2021-01-23 14:47] LABS: ALBUMIN 3.3 g/dL (3.2-5.0); ALKALINE PHOSPHATASE 62 u/l (38-126); ANION GAP 13 (6-22 (CALC)); BILIRUBIN, TOTAL 0.4 mg/dL (0.0-1.4); BUN 22 mg/dL (8-23); BUN/CREATININE RATIO 20 (12-20 (CALC)); CARBON DIOXIDE 27 mmol/l (22-30); CHLORIDE 100 mmol/l (95-108); CREATININE 1.1 mg/dL (0.7-1.3); GFR > 60 ML/MIN (>=60 (CALC)); GFR FOR AFR.AMER. > 60 ML/MIN (>=60 (CALC)); POTASSIUM 4.5 mmol/l (3.5-5.1); SGOT/AST 26 u/l (19-48); SODIUM 136 mmol/l (137-146); TOTAL PROTEIN 6.3 g/dL (6.3-8.2)
--- NOTE | 2021-01-23 15:00 | NUR ---
PATIENT RESTING IN STRETCHER IN NAD. PATIENT AND AWARE OF PENDING RESULTS AND WAIT TIME. CALL CURRIE WITHIN REACH.
--- NOTE | 2021-01-23 15:27 | NUR ---
PT UPDATED ON POC AND WAIT TIME ON BLOOD. PT HAVING NO PAIN AND NO SOB AT THIS TIME. AT BEDSIDE.
[2021-01-23] MEDS ORDERED: ESCITALOPRAM OX10 MG PO (15:48)
[2021-01-23] MEDS ORDERED: TAMSULOSIN0.4 MG PO (15:48)
[2021-01-23] MEDS ORDERED: CLOPIDOGREL75 MG PO (15:48)
[2021-01-23] MEDS ORDERED: LISINOPRIL10 MG PO (15:48)
--- NOTE | 2021-01-23 16:10 | NUR ---
PT UPDATED ON WAIT TIME FOR BLOOD AND NEED FOR ADMIT D/T CONDITION. VSS. PT AGGITATED THAT HE CANT "JUST GE THE BLOOD AND GO HOME" DISCUSSED PROCEDURE. PT AGREWEABLE.
--- NOTE | 2021-01-23 16:23 | NUR ---
KENNETH CHAKRABORTY APRN AT BEDSIDE
--- NOTE | 2021-01-23 16:45 | NUR ---
TRANSPORTED TO [place] VIA STRETCHER IN STABLE CONDITION.
--- NOTE | 2021-01-23 16:50 | NUR ---
REPORT RECEIVED FROM AKIN Jay RN
--- NOTE | 2021-01-23 17:00 | NUR ---
PT ARRIVED TO MED/SURG ROOM 274 IN STABLE CONDITION VIA STRETCHER ACCOMPANIED BY CHARLEYRN;PT ASSISTED TO BEDSIDE WITH X1 PERSON ASSIST;PT A&O X3 WITH [place]ES NOTED, ORIENTED TO ROOM AND CALL LIGHT SYSTEM;PT DENIES ANY CURRENT PAIN OR DISCOMFORTS,PAIN SCALE AND REPORTING EDUCATED;RESPIRATIONS EVEN AND UNLABORED ON RA,CLEAR LUNG SOUNDS;ABDOMEN SOFT ON PALPATION AND ACTIVE IN ALL 4 QUADRANTS,LAST BM 01/21/21;WEAK PEDAL PULSES;SKIN INTACT;TELE MONITORING IN PLACE;#20G TO LAC FLUSHED AND PATENT,NS STARTED @ 75ML/HR,SITE APPEARS HEALTHY;ACCUCHECK 115, NO COVERAGE NEEDED;FALL AND ALLERGY BAND NOTED;PT DENIES ANY ADDITIONAL NEEDS AND IS ENCOURAGED TO CALL FOR ASSITANCE IF NEEDED;FALL PRECAUTIONS IN PLACE WITH BED IN THE LOWEST POSITION AND CALL LIGHT IN REACH;WILL CONTINUE TO MONITOR
--- NOTE | 2021-01-23 17:09 | NUR ---
LAB AT BEDSIDE
[2021-01-23 17:18] VITALS: BP 155/71
[2021-01-23 19:00] VITALS: BP 157/69
--- NOTE | 2021-01-23 20:00 | NUR ---
PATIENT RESTING IN BED AT THIS TIME-AWAKE ALERT AND ORIENTEDX3. PATIENT IS ANXIOUS TO GET BLOOD TRANSFUSION DONE. EXPLAINED TO THE PATIENT THAT BECAUSE HE HAS SOME SPECIAL ANTIBODIES THAT THE BLOOD NEEDS SPECIAL ATTENSION AND THAT THE TRANSFUSION WOULD BE LATER TONIGHT. VERBALIZES UNDERSTANDING. TELE MONITOR IN PLACE. LAST READING WAS SR-85 1ST DEGREE AVB. IVF NS PATENT AND INFUSING VIA LAC SITE AT 75CC/HR. PATIENT IS [place]. VOIDING QS YELLOW URINE IN URINAL. ACCU-CHECK TO NIGHT WAS 118. SAFETY PRECAUTIONS REINFORCED. CALL LIGHT IN REACH., WILL CONT TO MONITOR.
[2021-01-23 22:30] LABS: HEMATOCRIT 14.8 % (39.0-50.0); HEMOGLOBIN 4.5 g/dl (14.0-18.0)
--- NOTE | 2021-01-23 22:36 | NUR ---
PATIENT REMAINS RESTING IN BED. MEDICATED WITH TYLENOL FOR GENERALIZED DISCOMFORT AND SLEEP. CONT TO WAIT FOR BLOOD TO ARRIVE FOR TRANSFUSION. H&H NOW IS 4.5/14.8. IVF NS PATENT AND INFUSING VIA LAC SITE AT 75CC/HR. CALL LIGHT IN REACH. WILL CONT TO MONITOR.
--- NOTE | 2021-01-23 23:04 | NUR ---
H&H RESULTS [id number]-7.5/HCT-14.8. LACTIC ACID IS 2.5. SPOKE WITH ZE IN LAB AND STATES THAT WE ARE STILL WAITING ON BLOOD FROM [id number] OUT. DR. MYERS CALLED AND NOTIFIED OF SITUATION AND RESULTS. NO NEW ORDERS RECEIEVED. WILL CONT TO MONITOR.
[2021-01-24] VITALS (21 sets, daily range): BP systolic 120–167; BP diastolic 59–97
--- NOTE | 2021-01-24 01:27 | NUR ---
PATIENT RESTING IN BED. AWAKE ALERT AND ORIENTED WITH NO COMPLAINTS AT THIS TIME. IV SITE TO LAC IS INTACT AND HEALTHY AT THIS TIME. #1 UNIT OF PRBC'S HUNG ORDERED. UNIT# [id number]. PATIENT HAS BEEN EDUCATED REGUARDING POSSIBLE ADVERSE REACTIONS INCLUDING FEVER, CHILLS, SHAKES, HEADACHE OR BACK PAIN, MONITORING PATIENT AT BEDSIDE PER PROTOCOL.
--- NOTE | 2021-01-24 03:50 | NUR ---
1ST UNIT OF PRBC'S FINISHED WITHOUT ANY ADVERSE REACTIONS. IV TO LAC REMAINS PATENT AND HEALTHY AT THIS TIME. PATIENT RESTING IN BED WITH NO COMPLAINTS AT THIS TIME. TELE MONITOR REMAINS IN PLACE. CALL LIGHT IN REACH. WILL CONT TO MONITOR. -
--- NOTE | 2021-01-24 04:12 | NUR ---
PATIENT RESTING IN BED AT THIS TIME. #2 UNIT OF PRBC'S-UNIT# [id number] HUNG AND INFUSING VIA LAC SITE. PATIENT EDUCATION REINFORCED REGUARDING POSSIBLE ADVERSE REACTIONS. MONITORING PATIENT AT BEDSIDE PER [facility] PROTOCOL.
--- NOTE | 2021-01-24 05:08 | NUR ---
RECIEVED CALL FROM VERO MORSE IN ER STATES THAT THE PATIENT IS IN [id number] RESTING IN BED WITH NO COMPLAINTS AT THIS TIME. VS TAKEN AND RECORDED. CALLED RT FOR EKG FOR RYTHM CHANGE. WILL CONT TO MONITOR.
--- NOTE | 2021-01-24 06:20 | NUR ---
PATIENT RESTING IN BED AT THIS TIME. 2ND UNIT OF PRBC'S FINISHED WITHOUT ANY ADVERSE REACTIONS. IVF NS NOW PATENT AND INFUSING VIA LAC SITE AT 75CC/HR. SITE REMAINS HEALTHY. TELE MONITOR IN PLACE-LAST READING WAS SR-86 1ST DEGREE AVB. NO COMPLAINTS AT THIS TIME. SAFETY PRECAUTIONS REINFORCED. CALL LIGHT IN REACH. WILL CONT TO MONITOR.
--- NOTE | 2021-01-24 07:15 | NUR ---
REPORT RECEIVED FROM KHADAR MCKEON
--- NOTE | 2021-01-24 08:20 | NUR ---
LAB AT BEDSIDE
--- NOTE | 2021-01-24 08:50 | NUR ---
PT RESTING IN SEMI FOWLERS POSITION,A&O X3;VS OBTAINED AND ASSESSMENT COMPLETD;PT DENIES ANY CURRENT PAIN OR DISCOMFORTS,PAIN SCALE AND REPORTING EDUCATED;RESPIRATIONS EVEN AND UNLABORED ON RA;ABDOMEN SOFT ON PALPATION AND ACTIVE IN ALL 4 QUADRANTS;WEAK PEDAL PULSES;SKIN INTACT;TELE MONITORING IN PLACE;#20G TO LAC INFUSING NS @ 75ML/HR;PT EDUCATED ON PLANS TO INFUSE ADDITIONAL UNITS OF PRBC'S AND REFUSES AT THIS TIME STATING "NO, NO MORE BLOOD.IM GOING HOME". NOTIFIED;PT ENCOURAGED TO CALL FOR ASSISTANCE IF NEEDED;FALL PRECAUTIONS IN PLACE WITH BED IN THE LOWEST POSITION AND CALL LIGHT IN REACH;WILL CONTINUE TO MONITOR
[2021-01-24 08:52] LABS: MEAN CORPUSCULAR HGB 28.3 pG CALC (26.0-32.0); MEAN CORPUSCULAR HGB CONC 31.8 g/dL CAL (32.0-36.0); RED BLOOD COUNT 2.72 mill/uL (4.70-6.10); RED CELL DISTRI WIDTH 15.6 % (11.5-15.5)
[2021-01-24 08:54] LABS: ANION GAP 11 (6-22 (CALC)); BUN 22 mg/dL (8-23); BUN/CREATININE RATIO 22 (12-20 (CALC)); CARBON DIOXIDE 28 mmol/l (22-30); CHLORIDE 102 mmol/l (95-108); GFR > 60 ML/MIN (>=60 (CALC)); GFR FOR AFR.AMER. > 60 ML/MIN (>=60 (CALC)); HEMATOCRIT 24.2 % (39.0-50.0); MAGNESIUM 1.7 mg/dL (1.6-2.3); POTASSIUM 4.6 mmol/l (3.5-5.1); SODIUM 136 mmol/l (137-146)
[2021-01-24 08:55] LABS: HEMOGLOBIN 7.7 g/dl (14.0-18.0)
--- NOTE | 2021-01-24 09:29 | NUR ---
AT BEDSIDE DISCUSSING POC.
--- NOTE | 2021-01-24 10:35 | NUR ---
PT RESTING IN SEMI FOWLERS POSITION WITH SPOUSE AT BEDSIDE;PT EDUCATED ON ALL S/S OF BLOOD TRANSFUSION REACTION AND VERBALIZES UNDERSTANDING;1 UNIT OF PRBC'S INITATED AT THIS TIME WITH VERIFICATION BY KHADAR KIM;WRITTER TO REMAIN AT BEDSIDE FOR INITAL 15 MINS PER [facility] PROTOCAL;WILL CONTINUE TO MONITOR
--- NOTE | 2021-01-24 10:53 | NUR ---
PT RESTING IN SEMI FOWLERS POSITION;RESPIRATIONS EVEN AND UNLABORED ON RA;PT DENIES ANY S/S OF A BLOOD TRANSFUSION REACTION;VS WNL;PT ENCOURAGED TO CALL FOR ASSISTANCE IF NEEDED;CALL LIGHT IN REACH;WILL CONTINUE TO MONITOR
--- NOTE | 2021-01-24 11:45 | NUR ---
PT RESTING IN SEMI FOWLERS POSITION;RESPIRATIONS EVEN AND UNLABORED ON RA;PT DENIES ANY CURRENT PAIN BUT DOES REPORT NAUSEA, PT MEDICATED WITH PRN ZOFRAN 4MG IVP AT THIS TIME;TELE MONITORING IN PLACE;IV SITE PATENT INFUSING PRBC'S WITH EASE;PT DENIES ANY ADDITIONAL NEEDS AND IS ENCOURAGED TO CALL FOR ASSISTANCE IF NEEDED;CALL LIGHT IN REACH;WILL CONTINUE TO MONITOR
--- NOTE | 2021-01-24 12:55 | NUR ---
1 UNIT OF PRBC'S COMPLETED AT THIS TIME. PT TOLERATED WELL AND VS REMAIN WNL; NS RE-STARTED AT 75ML/HR PER ORDER. LABWORK TO BE COMPLETED IN 2 HOURS PER MD. PT VERBALIZES UNDERSTANDING AND DENIES ANY ADDITIONAL QUESTIONS OR NEEDS;CALL LIGHT IN REACH;WILL CONTINUE TO MONITOR
--- NOTE | 2021-01-24 15:15 | NUR ---
PT RESTING IN SEMI SEMI FOWLERS POSITION;RESPIRATIONS EVEN AND UNLABORED ON RA;PT DENIES ANY CURRENT PAIN OR DISCOMFORTS;TELE MONITORING IN PLACE;IV SITE PATENT INFUSING NS @ 75ML/HR;URINAL EMPTIED OF 100CC OF CLEAR/YELLOW URINE;PT ENCOURAGED TO CALL FOR ASSISTANNCE IF NEEDED;CALL LIGHT IN REACH;WILL CONTINUE TO MONITOR
--- NOTE | 2021-01-24 15:39 | NUR ---
LAB AT BEDSIDE
--- NOTE | 2021-01-24 15:43 | NUR ---
PHYSICAL THERAPY AT BEDSIDE WORKING WITH PT.
[2021-01-24 15:59] LABS: HEMATOCRIT 23.6 % (39.0-50.0); HEMOGLOBIN 7.6 g/dl (14.0-18.0)
--- NOTE | 2021-01-24 21:30 | NUR ---
PHYSICAL ASSESMENT COMPLETE. PT CURRENTLY DENIES PAIN OR DISCOMFORT. SCHEDULE BLOOD GIVEN PT TOLERATED PROCEDURE WELL. TYLENOL GIVEN FOR BODY ACHES. SCHEDULED MEDICATIONS AND PRN MEDICATION ADMINISTERED, SEE E-MAR. PT DENIES ANY NEEDS AT THIS TIME. PLAN OF CARE REVIEWED, PT DENIES QUESTIONS, VERBALIZES UNDERSTANDING. ITEMS WITHIN REACH, BED LOCKED IN LOW POSITION W/ BEDRAILS UP X2. CALL CURRIE WITHIN REACH, AGREES TO CALL PRN.
[2021-01-25 00:30] VITALS: BP 158/72
--- NOTE | 2021-01-25 03:58 | NUR ---
PT RESTING IN BED, NO SIGNS OF DISTRESS NOTED, RESP EVEN AND UNLABORED. PT VOICES NO NEEDS OR COMPLAINTS AT THIS TIME. CALL LIGHT IN REACH, WILL CONTINUE TO MONITOR.
[2021-01-25 04:00] VITALS: BP 155/68
[2021-01-25 05:36] LABS: HEMATOCRIT 26.2 % (39.0-50.0); HEMOGLOBIN 8.8 g/dl (14.0-18.0); MEAN CELL VOLUME 85.3 fL CALC (80.0-100.0); MEAN CORPUSCULAR HGB 28.7 pG CALC (26.0-32.0); MEAN CORPUSCULAR HGB CONC 33.6 g/dL CAL (32.0-36.0); RED BLOOD COUNT 3.07 mill/uL (4.70-6.10); RED CELL DISTRI WIDTH 15.4 % (11.5-15.5)
[2021-01-25 06:03] LABS: ANION GAP 12 (6-22 (CALC)); BUN 19 mg/dL (8-23); BUN/CREATININE RATIO 22 (12-20 (CALC)); CHLORIDE 106 mmol/l (95-108); CREATININE 0.9 mg/dL (0.7-1.3); GFR > 60 ML/MIN (>=60 (CALC)); GFR FOR AFR.AMER. > 60 ML/MIN (>=60 (CALC)); MAGNESIUM 1.8 mg/dL (1.6-2.3); POTASSIUM 4.4 mmol/l (3.5-5.1); SODIUM 136 mmol/l (137-146)
[2021-01-25 06:04] LABS: CARBON DIOXIDE 22 mmol/l (22-30)
--- NOTE | 2021-01-25 07:00 | NUR ---
RECIEED RPORT FROM KHADAR LOMELI
[2021-01-25 07:37] VITALS: BP 143/65
--- NOTE | 2021-01-25 07:37 | NUR ---
PT RESTING IN SEMI FOWLERS POSITION. PT IS A/O X3. ASSESSMENT AND VITALS COMPLETED. BP 143/65, HR 73, O2 9% ON ROOM AR. RESPIRATIONS ARE EVEN AND UNLABORED WITH NO DISTRESS NOTED. CRACKLES NOTED UPON ASCULATION OF LUNGS.HEART RHYTHM NORMAL WITH TELE IN PLACE, PACE PER ER MONITORING.BOWEL SOUNDS ARE ACTIVE X4 QUADRANTS, LBM 01/24/21. PULSES STRONG. #20G LAC INFUSING WITH IVF PER ORDER, SITE REMAINS HEALTHY AND PATENT. SKIN INTACT. PT DENES OF ANY PAINS OR DISCOMFORTS AT THIS TIME. ALL SAFETY PRECAUTIONS ARE IN PLACE WITH CALL LIGHT IN REACH. WILL CONTINUE TO MONITOR.
--- NOTE | 2021-01-25 08:00 | NUR ---
PT PLACED ON CONTACT PRECAUTIONS DUE TO + ESBL. PT EDUCATED ON PRECUATIONS. PT VERBALIZED UNDERSTANDING.
--- NOTE | 2021-01-25 09:36 | NUR ---
DR MYERS AND GEORGE,ANRP AT BEDSIDE
[2021-01-25] MEDS ORDERED: ERTAPENEM1 GM IV (10:21)
--- NOTE | 2021-01-25 11:20 | NUR ---
PT TRANSPORTED TO RADIOLOGY VIA WHEELCHAIR ACCOMPAINED BY ANYA SILVER FOR PICC PLACEMENT.
--- NOTE | 2021-01-25 12:21 | NUR ---
PT RETURN FROM RADIOLOGY. PT ASSISTED BACK TO INT BED. EMILY PICC IN PLACE, SITE APPEARS HEALTHY AND PATENT WITH GOOD BLOOD RETURN. ARM MEASURING IN 25CM CIRCUMFERENCE. IVF INFUSING PER ORDER. #20G LAC REMOVED WITH CATH STILL INTACT. TELE MONITORING IN PLACE. PT INFORMED OF DELAY OF DC HOME. PT BECOMING AGITATED. XANAX PROVIDED. PT DENIES OF ANY ADDITIONAL NEEDS. ALL SAEFTY PRECAUTIONS ARE IN PLACE WITH CALL LIGHT IN REACH. WILL CONTINUE TO MONITOR
--- NOTE | 2021-01-25 12:26 | NUR ---
S- pt stated he rides 3 lei at home and does exercises there. 0- nursing contacted prior to treatment. Pt seen for ther ex and mobility skills. AROM ex performed to BLE in supine 10-20 reps each including heel slides, SLR flexion ankle AROM. He rolled side to side indep. Supine to and from sit with SBA to CGA. Pt impulsive with movement. Pt able to stand x 30 sec with eyes closed with mild sway but no LOB. Sit to stand x 8 reps in 30 sec. Gait without assist device x 20' with CGA/min assist with pt touching objects. Standing balance activities performed with CGA. He ambulated 2 x 40' with RW and CGA, no LOB noted, posture flexed and pt needed verbal cues to slow down. Pt present during treatment. Gait belt and non skid socks in place with mobility skills. BP 140/50 stable, HR mid 70's, 02 sats 75-97%. A- [place] [id number] home with Home health P- will follow john d/c
[2021-01-25 14:50] VITALS: BP 127/52
--- NOTE | 2021-01-25 15:05 | NUR ---
Attempted treatment this pm. Pt was curled up on R side with nursing in room. Pt refused treatment stating he was resting and continued to refuse even with much encouragement.
--- NOTE | 2021-01-25 16:11 | NUR ---
PT SITTING UP ON SIDE OF BED DRINKING COFFEE. PT REMAINS A/O X3. REPSIRATIONS ARE EVEN AND UNLABORED WITH NO DISTRESS ON ROOM AIR. TELE MONITORING IN PLACE. #20G RAC REMAINS IN PLACE. PT DENIES OF ANY PAINS OR DISCOMFORTS AT THIS TIME. ALL SAFETY PRECAUTIONS ARE IN PLACE WITH CALL LIGHT IN REACH. WILL CONTINUE TO MONITOR.
--- NOTE | 2021-01-25 16:20 | NUR ---
PT RESTING IN SEMI FOWLERS POSITION. PT REMAINS A/O X3. RESPIRATIONS ARE EVEN AND UNLABORED WITH NO DISTRESS NOTED. EMILY PICC REMAINS INFUSING WITH IVF PER ORDER, SITE REMAINS HEALTHY AND PATENT. TELE MONITORING IN PLACE. PT INFOMED OF DC DELAY. PT ERBLAIZED UNDERSTANDING. PT DENIES OF ANY ADDITIONAL NEEDS AT THIS TIME. ALL SAFETY PRECAUTIONS ARE IN PLACE WITH CALL LIGHT IN REACH. WILL CONTINUE TO MONITOR.
[2021-01-25 19:00] VITALS: BP 160/70
--- NOTE | 2021-01-25 19:55 | NUR ---
PHYSICAL ASSESMENT COMPLETE. PT CURRENTLY DENIES PAIN OR DISCOMFORT. SCHEDULED MEDICATIONS AND PRN MEDICATION ADMINISTERED, SEE E-MAR. PT DENIES ANY NEEDS AT THIS TIME. PLAN OF CARE REVIEWED, PT DENIES QUESTIONS, VERBALIZES UNDERSTANDING. ITEMS WITHIN REACH, BED LOCKED IN LOW POSITION W/ BEDRAILS UP X2. CALL CURRIE WITHIN REACH, AGREES TO CALL PRN.
[2021-01-26] VITALS: BP 159/76
[2021-01-26 04:00] VITALS: BP 155/70
--- NOTE | 2021-01-26 04:00 | NUR ---
PT RESTING IN BED, NO SIGNS OF DISTRESS NOTED, RESP EVEN AND UNLABORED. PT VOICES NO NEEDS OR COMPLAINTS AT THIS TIME. CALL LIGHT IN REACH, CONTINUE TO MONITOR.
[2021-01-26 05:14] LABS: HEMATOCRIT 25.8 % (39.0-50.0); HEMOGLOBIN 8.3 g/dl (14.0-18.0); MEAN CELL VOLUME 89.3 fL CALC (80.0-100.0); MEAN CORPUSCULAR HGB 28.7 pG CALC (26.0-32.0); MEAN CORPUSCULAR HGB CONC 32.2 g/dL CAL (32.0-36.0); RED BLOOD COUNT 2.89 mill/uL (4.70-6.10)
--- NOTE | 2021-01-26 07:00 | NUR ---
RECIEVED REPORT FROM KHADAR LOMELI
[2021-01-26 08:19] VITALS: BP 162/72
--- NOTE | 2021-01-26 08:19 | NUR ---
PT RESTING IN SEMI FOWLERS POSITION. PT IS A/O X3. ASSESSMENT AND VITALS COMPLETED. BP 162/72, HR 81, O2 95% ON ROOM AIR. RESPIRATIONS ARE EVEN AND UNLABORED ON ROOM AIR. LUNG SOUNDS ARE CLEAR. HEART RHYTHM NORMAL WITH TELE IN PLACE. BOWEL SOUNDS ARE ACTIVE, LBM 01/24/21. #EMILY PICC INFUSING WITH IVF PER ORDER, SITE REMAINS HEALTHY AND PATENT. PULSES STRONG. SKIN INTACT. PT DENIES OF ANY PAINS OR DISCOMFORTS AT THIS TIME. ALL SAFTEY PRECAUTIONS ARE IN PLACE WITH CALL LIGHT IN REACH. WILL CONTINUE TO MONITOR.
[2021-01-26 11:53] VITALS: BP 175/77
--- NOTE | 2021-01-26 12:27 | NUR ---
PT AND EDUACTED ON DC INSTRUCTIONS AND HOME IV ANTIBIOTICS. BOTH VERBLAIZED UNDERSTANDING. BP REMAINS ELEVATED. ORDERS FOR APRESOLINE IV. TO BE ADMINISTERED BY RN. [place] SAFETY PRECAUTIONS ARE IN PLACE. WILL CONTINUE TO MONITOR
--- NOTE | 2021-01-26 12:47 | NUR ---
PT MEDICATED WITH APRESOLINE 10 MG IVP FOR BP 175/77 WITH A HR OF 70. PT AND EDUCATED ON MEDICATION. BP TO BE REASSESSED. CALL LIGHT LEFT WITHIN REACH.
--- NOTE | 2021-01-26 12:47 | NUR ---
APRESOLINE IV ADMINISTERED BY EMELYRN
--- NOTE | 2021-01-26 13:32 | NUR ---
Discharge instructions given. Patient verbalizes understanding of same. Discharged in stable condition via Wheelchair to Home with staff. All belongings sent with pt. PT DC HOME WITH [facility] VIA WHEELCHAIR ACCOMPAINED BY AND ANYA SILVER.ALL PERSONAL BELONGINGS AND DC INSTRUCTIONS. EMILY PICC REMAINS IN PLACE. FLUSHED WITH HEPARIN PER PROTOCAL. TELE MONITORING REMOVED, ER INFORMED.
[2021-01-26 13:55] VITALS: BP 145/71
== END 2021-01-26 13:31 | disposition home or self-care (01) | DRG 811 ==
LOC: ED 13:48 → ED-I 14:50 → ED 15:07 → MS2 15:08 → ED 15:46 → MS2 15:46
PROVIDERS: Family Medicine; Nurse Practitioner; ADMIT Internal Medicine; ATTEND Internal Medicine
PROC: 30233N1 Transfusion of Nonautologous Red Blood Cells into Peripheral Vein, Percutaneous Approach (ICD-10-PCS; principal; 2021-01-24)
PROC: 30233N1 Transfusion of Nonautologous Red Blood Cells into Peripheral Vein, Percutaneous Approach (ICD-10-PCS; 2021-01-24)
PROC: 30233N1 Transfusion of Nonautologous Red Blood Cells into Peripheral Vein, Percutaneous Approach (ICD-10-PCS; 2021-01-24)
PROC: 30233N1 Transfusion of Nonautologous Red Blood Cells into Peripheral Vein, Percutaneous Approach (ICD-10-PCS; 2021-01-24)
PROC: 02HV33Z Insertion of Infusion Device into Superior Vena Cava, Percutaneous Approach (ICD-10-PCS; 2021-01-25)
PROC: B518ZZA Fluoroscopy of Superior Vena Cava, Guidance (ICD-10-PCS; 2021-01-25)
DX: D62 Acute posthemorrhagic anemia (principal); K55.21 Angiodysplasia of colon with hemorrhage; N39.0 Urinary tract infection, site not specified; E87.2 Acidosis; Z16.12 Extended spectrum beta lactamase (ESBL) resistance; I10 Essential (primary) hypertension; E11.40 Type 2 diabetes mellitus with diabetic neuropathy, unspecified; I25.10 Atherosclerotic heart disease of native coronary artery without angina pectoris; I49.5 Sick sinus syndrome; J44.9 Chronic obstructive pulmonary disease, unspecified; B96.20 Unspecified Escherichia coli [E. coli] as the cause of diseases classified elsewhere; Z79.84 Long term (current) use of oral hypoglycemic drugs; Z79.02 Long term (current) use of antithrombotics/antiplatelets; Z95.0 Presence of cardiac pacemaker; Z20.822 Contact with and (suspected) exposure to COVID-19
CPT/HCPCS: J1335; J1756; P9016; S0164

== ENCOUNTER 2021-05-21 12:02 | Emergency (ER) | payer MEDICARE ==
[~2021-05-21] VITALS: Ht 177.8 cm; Wt 62.0 kg
[2021-05-21] VITALS (20 sets, daily range): BP systolic 129–176; BP diastolic 52–108
[~2021-05-21 12:02] MED LIST changes: +CLOPIDOGREL75 MG PO; +ESCITALOPRAM OX10 MG PO; +LISINOPRIL10 MG PO; +TAMSULOSIN0.4 MG PO
[2021-05-21 12:59] LABS: IMMATURE GRANULOCYTES 0.2 % (0.0-5.0); MEAN CELL VOLUME 100.6 fL CALC (80.0-100.0); MEAN CORPUSCULAR HGB 27.4 pG CALC (26.0-32.0); MEAN CORPUSCULAR HGB CONC 27.2 g/dL CAL (32.0-36.0); NEUT# 7.09 thou/uL (1.82-7.42); RED BLOOD COUNT 1.68 mill/uL (4.70-6.10); RED CELL DISTRI WIDTH 15.4 % (11.5-15.5)
[2021-05-21 13:00] LABS: HEMATOCRIT 16.9 % (39.0-50.0); HEMOGLOBIN 4.6 g/dl (14.0-18.0)
[2021-05-21 13:11] LABS: PROTHROMBIN TIME 10.7 SECONDS (9.0-12.5)
[2021-05-21 13:12] LABS: ALBUMIN 3.7 g/dL (3.2-5.0); ALKALINE PHOSPHATASE 63 u/l (38-126); ANION GAP 12 (6-22 (CALC)); BILIRUBIN, TOTAL 0.4 mg/dL (0.0-1.4); BUN 20 mg/dL (8-23); BUN/CREATININE RATIO 18 (12-20 (CALC)); CARBON DIOXIDE 26 mmol/l (22-30); CHLORIDE 100 mmol/l (95-108); CREATININE 1.1 mg/dL (0.7-1.3); GFR > 60 ML/MIN (>=60 (CALC)); GFR FOR AFR.AMER. > 60 ML/MIN (>=60 (CALC)); POTASSIUM 4.4 mmol/l (3.5-5.1); SGOT/AST 25 u/l (19-48); SODIUM 133 mmol/l (137-146); TOTAL PROTEIN 6.5 g/dL (6.3-8.2)
[2021-05-21 15:30] LABS: URINE BILIRUBIN - DIPSTICK NEGATIVE (NEGATIVE); URINE BLOOD DIPSTICK NEGATIVE (NEGATIVE); URINE COLOR YELLOW; URINE GLUCOSE - DIPSTICK NEGATIVE (NEGATIVE); URINE KETONE NEGATIVE (NEGATIVE); URINE PROTEIN - DIPSTICK NEGATIVE (NEG-TRACE); URINE SPECIFIC GRAVITY <=1.005; URINE UROBILINOGEN - DIPSTICK 0.2 E.U./dL (0.2)
[2021-05-21 15:32] LABS: URINE LEUK ESTERASE SMALL (NEGATIVE); URINE NITRITE - DIPSTICK POSITIVE (Negative)
[2021-05-21 15:44] LABS: URINE BACTERIA FEW hpf; URINE RBC 0-2 RBC/hpf (0-5)
== END 2021-05-21 17:33 | disposition short-term general hospital (02) ==
LOC: ED 12:02
PROVIDERS: Nurse Practitioner
DX: K92.2 Gastrointestinal hemorrhage, unspecified (principal); D62 Acute posthemorrhagic anemia; I10 Essential (primary) hypertension; E11.9 Type 2 diabetes mellitus without complications; I49.5 Sick sinus syndrome; I25.10 Atherosclerotic heart disease of native coronary artery without angina pectoris; Q27.30 Arteriovenous malformation, site unspecified; Z95.0 Presence of cardiac pacemaker; Z79.84 Long term (current) use of oral hypoglycemic drugs
CPT/HCPCS: S0164

== ENCOUNTER 2021-06-29 14:18 | Observation (INO) | payer MEDICARE ==
[~2021-06-29] VITALS: Ht 177.8 cm; Wt 68.0 kg
[2021-06-29] VITALS (18 sets, daily range): BP systolic 111–169; BP diastolic 52–131
[~2021-06-29 14:18] MED LIST changes: +FE TABS325 MG PO; -FERR SULFATE325 MG PO
[2021-06-29 15:06] LABS: URINE BILIRUBIN - DIPSTICK NEGATIVE (NEGATIVE); URINE BLOOD DIPSTICK TRACE-INTACT (NEGATIVE); URINE COLOR YELLOW; URINE GLUCOSE - DIPSTICK NEGATIVE (NEGATIVE); URINE KETONE NEGATIVE (NEGATIVE); URINE PH 5.5 (4.5-8.0); URINE PROTEIN - DIPSTICK NEGATIVE (NEG-TRACE); URINE UROBILINOGEN - DIPSTICK 0.2 E.U./dL (0.2)
[2021-06-29 15:07] LABS: IMMATURE GRANULOCYTES 0.4 % (0.0-5.0); MEAN CELL VOLUME 95.4 fL CALC (80.0-100.0); MEAN CORPUSCULAR HGB 29.7 pG CALC (26.0-32.0); MEAN CORPUSCULAR HGB CONC 31.2 g/dL CAL (32.0-36.0); NEUT# 8.3 thou/uL (1.82-7.42); RED BLOOD COUNT 3.23 mill/uL (4.70-6.10); RED CELL DISTRI WIDTH 17.1 % (11.5-15.5)
[2021-06-29 15:07] LABS: URINE LEUK ESTERASE MODERATE (NEGATIVE); URINE NITRITE - DIPSTICK NEGATIVE (Negative); URINE RBC 0-2 RBC/hpf (0-5); URINE WBC 20-50 WBC/hpf (0-5)
[2021-06-29 15:08] LABS: URINE BACTERIA MANY hpf
[2021-06-29 15:10] LABS: HEMATOCRIT 30.8 % (39.0-50.0); HEMOGLOBIN 9.6 g/dl (14.0-18.0)
[2021-06-29 15:22] LABS: ALKALINE PHOSPHATASE 65 u/l (38-126); ANION GAP 14 (6-22 (CALC)); BILIRUBIN, TOTAL 2.5 mg/dL (0.0-1.4); BUN 25 mg/dL (8-23); BUN/CREATININE RATIO 19 (12-20 (CALC)); CARBON DIOXIDE 22 mmol/l (22-30); CHLORIDE 99 mmol/l (95-108); CREATININE 1.3 mg/dL (0.7-1.3); GFR 53 ML/MIN (>=60 (CALC)); GFR FOR AFR.AMER. > 60 ML/MIN (>=60 (CALC)); LIPASE 66 u/l (23-300); POTASSIUM 4.4 mmol/l (3.5-5.1); SGOT/AST 30 u/l (19-48); SODIUM 131 mmol/l (137-146); TOTAL PROTEIN 6.5 g/dL (6.3-8.2)
[2021-06-30 00:43] VITALS: BP 130/50
[2021-06-30 04:02] VITALS: BP 124/71
[2021-06-30 04:54] LABS: HEMATOCRIT 28.7 % (39.0-50.0); HEMOGLOBIN 9.1 g/dl (14.0-18.0); IMMATURE GRANULOCYTES 0.2 % (0.0-5.0); MEAN CELL VOLUME 95.7 fL CALC (80.0-100.0); MEAN CORPUSCULAR HGB 30.3 pG CALC (26.0-32.0); MEAN CORPUSCULAR HGB CONC 31.7 g/dL CAL (32.0-36.0); NEUT# 8.04 thou/uL (1.82-7.42); RED CELL DISTRI WIDTH 17.7 % (11.5-15.5)
[2021-06-30 05:10] LABS: ANION GAP 9 (6-22 (CALC)); BUN 22 mg/dL (8-23); BUN/CREATININE RATIO 16 (12-20 (CALC)); CHLORIDE 101 mmol/l (95-108); CREATININE 1.3 mg/dL (0.7-1.3); GFR 53 ML/MIN (>=60 (CALC)); GFR FOR AFR.AMER. > 60 ML/MIN (>=60 (CALC)); MAGNESIUM 1.9 mg/dL (1.6-2.3); POTASSIUM 4.2 mmol/l (3.5-5.1); SODIUM 134 mmol/l (137-146)
[2021-06-30 05:14] LABS: CARBON DIOXIDE 28 mmol/l (22-30)
[2021-06-30] MEDS ORDERED: TRAMADOL HCL50 MG PO (07:35)
[2021-06-30 07:55] VITALS: BP 108/56
[2021-06-30 10:30] VITALS: BP 108/43
[2021-06-30] MEDS ORDERED: VANTIN200 M1 PO (10:33)
[2021-06-30] MEDS ORDERED: ONDANSETRON4 MG PO (10:37)
== END 2021-06-30 12:00 | disposition home health service (06) ==
LOC: ED 14:18 → ED-I 17:30 → ED 18:32 → MS2 18:33
PROVIDERS: Nurse Practitioner; ADMIT Internal Medicine; ATTEND Internal Medicine
PROC: 0T9B70Z Drainage of Bladder with Drainage Device, Via Natural or Artificial Opening (ICD-10-PCS; principal; 2021-06-29)
DX: N39.0 Urinary tract infection, site not specified (principal); R50.9 Fever, unspecified; R10.30 Lower abdominal pain, unspecified; K55.21 Angiodysplasia of colon with hemorrhage; D62 Acute posthemorrhagic anemia; I10 Essential (primary) hypertension; E11.40 Type 2 diabetes mellitus with diabetic neuropathy, unspecified; J44.9 Chronic obstructive pulmonary disease, unspecified; I25.10 Atherosclerotic heart disease of native coronary artery without angina pectoris; I49.5 Sick sinus syndrome; K59.09 Other constipation; B96.1 Klebsiella pneumoniae [K. pneumoniae] as the cause of diseases classified elsewhere; Z95.0 Presence of cardiac pacemaker; Z87.891 Personal history of nicotine dependence; Z87.440 Personal history of urinary (tract) infections; Z79.84 Long term (current) use of oral hypoglycemic drugs; Z20.822 Contact with and (suspected) exposure to COVID-19
CPT/HCPCS: G0378; P9016; Q9967

== ENCOUNTER 2021-07-09 15:10 | Observation (INO) | payer MEDICARE ==
[~2021-07-09] VITALS: Ht 177.8 cm; Wt 55.0 kg
[2021-07-09] VITALS (13 sets, daily range): BP systolic 95–129; BP diastolic 41–53
[~2021-07-09 15:10] MED LIST changes: +ONDANSETRON4 MG PO; +TRAMADOL HCL50 MG PO; +VANTIN200 M1 PO
--- NOTE | 2021-07-09 15:37 | NUR ---
PATIENT ROOMED VIA WHEELCHAIR WITH AT SIDE, NO ACUTE DISTRESS. CONNECTED TO MONITOR. PROVIDER AWARE OF PATIENT STATUS.
[2021-07-09 16:02] LABS: IMMATURE GRANULOCYTES 0.4 % (0.0-5.0); MEAN CELL VOLUME 96.3 fL CALC (80.0-100.0); MEAN CORPUSCULAR HGB 29.6 pG CALC (26.0-32.0); MEAN CORPUSCULAR HGB CONC 30.8 g/dL CAL (32.0-36.0); NEUT# 4.84 thou/uL (1.82-7.42); RED BLOOD COUNT 2.16 mill/uL (4.70-6.10); RED CELL DISTRI WIDTH 15.5 % (11.5-15.5)
[2021-07-09 16:13] LABS: HEMATOCRIT 20.8 % (39.0-50.0); HEMOGLOBIN 6.4 g/dl (14.0-18.0)
[2021-07-09 16:15] LABS: ALBUMIN 3.6 g/dL (3.2-5.0); ALKALINE PHOSPHATASE 57 u/l (38-126); ANION GAP 13 (6-22 (CALC)); BUN 36 mg/dL (8-23); BUN/CREATININE RATIO 27 (12-20 (CALC)); CARBON DIOXIDE 27 mmol/l (22-30); CHLORIDE 97 mmol/l (95-108); CREATININE 1.3 mg/dL (0.7-1.3); GFR 53 ML/MIN (>=60 (CALC)); GFR FOR AFR.AMER. > 60 ML/MIN (>=60 (CALC)); POTASSIUM 4.4 mmol/l (3.5-5.1); SGOT/AST 29 u/l (19-48); SODIUM 133 mmol/l (137-146); TOTAL PROTEIN 6.4 g/dL (6.3-8.2)
[2021-07-09 16:22] LABS: BILIRUBIN, TOTAL 0.4 mg/dL (0.0-1.4)
--- NOTE | 2021-07-09 16:36 | NUR ---
Reassessment of patient completed. No distress noted.
--- NOTE | 2021-07-09 17:14 | NUR ---
Reassessment of patient completed. No distress noted.
--- NOTE | 2021-07-09 18:49 | NUR ---
REPORT GIVEN TO KVNG
--- NOTE | 2021-07-09 19:13 | NUR ---
RECEIVED REPORT FROM KVNG RUBALCAVA. PT RESTING IN BED. NO COMPLAINTS OF PAIN OR DISCOMFORT. CALL LIGHT WITHIN REACH. BED ALARM ON
--- NOTE | 2021-07-09 19:26 | NUR ---
PLACED CALL TO LAB TO SEE IF PT BLOOD WAS READY. WAS INFORMED THAT I'll RECEIVE A CALL ONCE BLOOD IS READY
--- NOTE | 2021-07-09 22:19 | NUR ---
received call from Jessica in lab stating [facility] on the way and will be here by [id number]
[2021-07-10] VITALS (15 sets, daily range): BP systolic 112–137; BP diastolic 38–56
--- NOTE | 2021-07-10 01:15 | NUR ---
Went to lab to obtain ordered blood. senior qc technician was getting an unknown error when scanning. senior qc technician reviewing cause of error and will inform me when able to black pickler blood. Informed supervisor road administrator.
--- NOTE | 2021-07-10 04:21 | NUR ---
Pt IV site in the right AC infiltrated prior to blood reaching the patient. Site was red and swollen but pt denied any pain. IV was removed, warm compressed applied and arm was elevated. New IV site was obtained. Blood currently infusing. 15 minutes vitals were obtained and recored in chart. No signs or symptoms of reaction. Patient tolerating well. Will continue to monitor patient.
--- NOTE | 2021-07-10 07:44 | NUR ---
Patient is screened for physical medicine intervention and would benefit from PT, OT, and ST consults if medical agrees
--- NOTE | 2021-07-10 08:00 | NUR ---
PT RECEIVED FROM REEL OPERATOR RN IN STABLE CONDITION PT STATES HE IS FEELING WELL, NO CURRENT COMPLAINTS, WOULD LIKE TO SEE HIS AND IS EAGER TO GO HOME SAFETY PRECAUTIIONS IN PLACE, PERSONAL ITEMS AND CALL LIGHT WITHIN REACH PLAN OF CARE DISCUSSED WITH PT
[2021-07-10] MEDS ORDERED: FE TABS325 MG PO (10:16)
[2021-07-10] MEDS ORDERED: ASPIRIN81 MG PO (10:18)
[2021-07-10] MEDS ORDERED: GABAPENTIN100 MG PO (10:20)
[2021-07-10] MEDS ORDERED: PROAIR HFA108 MCG/AC IN (10:26)
[2021-07-10] MEDS ORDERED: BREO ELLIPTA 101 INH IN (10:27)
[2021-07-10] MEDS ORDERED: TRIAMCINOLONE A0.12 EX (10:27)
[2021-07-10] MEDS ORDERED: XYZAL ALLERGY 245 MG PO (10:28)
[2021-07-10] MEDS ORDERED: FLUTICASON50 MCG/ACT NAB (10:29)
[2021-07-10] MEDS ORDERED: CLOBETASOL0.05 % EX (10:31)
--- NOTE | 2021-07-10 10:45 | NUR ---
PT TOLERATED 2ND TRANSFUSION OF [facility] WITH NO COMPLICATIONS PT DOES NOT HAVE ANY COMPLAINTS AT THIS CURRENT TIME
[2021-07-10 12:53] LABS: HEMATOCRIT 25.1 % (39.0-50.0); HEMOGLOBIN 7.9 g/dl (14.0-18.0); MEAN CORPUSCULAR HGB 29.3 pG CALC (26.0-32.0); MEAN CORPUSCULAR HGB CONC 31.5 g/dL CAL (32.0-36.0); RED BLOOD COUNT 2.7 mill/uL (4.70-6.10); RED CELL DISTRI WIDTH 15.5 % (11.5-15.5)
[2021-07-10 13:29] LABS: ANION GAP 10 (6-22 (CALC)); BUN 33 mg/dL (8-23); BUN/CREATININE RATIO 27 (12-20 (CALC)); CARBON DIOXIDE 29 mmol/l (22-30); CHLORIDE 101 mmol/l (95-108); CREATININE 1.2 mg/dL (0.7-1.3); GFR 58 ML/MIN (>=60 (CALC)); GFR FOR AFR.AMER. > 60 ML/MIN (>=60 (CALC)); POTASSIUM 4.6 mmol/l (3.5-5.1); SODIUM 135 mmol/l (137-146)
--- NOTE | 2021-07-10 19:10 | NUR ---
Received report from Ruth RUBALCAVA. Pt resting in bed. No complaints of pain or discomfort. Pt denies any needs at this time. Call light within reach and bed alarm on.
[2021-07-11] VITALS (11 sets, daily range): BP systolic 118–144; BP diastolic 44–67
--- NOTE | 2021-07-11 07:30 | NUR ---
PT RESTING IN SEMI FOWLERS POSITION. A/OX3 ASSESSMENT AND VITAL SIGNS COMPLETED. HEART RHYTHM NORMAL ON PACED HEART MONITOR. RESPIRATIONS EVEN AND UNLABORED. BOWEL SOUNDS HYPOACTIVE. IV PATENT NS @100 PT DENIES ADDITIONAL NEEDS AT THE MOMENT. ALL SAFETY PRECAUTIONS IN PLACE WITH CALL LIGHT IN REACH.
[2021-07-11 10:47] LABS: URINE BILIRUBIN - DIPSTICK NEGATIVE (NEGATIVE); URINE BLOOD DIPSTICK NEGATIVE (NEGATIVE); URINE COLOR YELLOW; URINE GLUCOSE - DIPSTICK NEGATIVE (NEGATIVE); URINE KETONE NEGATIVE (NEGATIVE); URINE LEUK ESTERASE NEGATIVE (NEGATIVE); URINE NITRITE - DIPSTICK NEGATIVE (Negative); URINE PROTEIN - DIPSTICK NEGATIVE (NEG-TRACE); URINE UROBILINOGEN - DIPSTICK 0.2 E.U./dL (0.2)
--- NOTE | 2021-07-11 11:29 | NUR ---
Pt seen this am for treatment. He was resting in bed with present. tries to care for patient though out treatment even when told to relax in chair. He was without complaints and stated he wants to go home. He performed gentle resisted hip and knee ext, SAQ, active hip abd/add, ankle DF. Quad and glut set reviewed and performed. Gentle heelcord and hamstring stretch done by therapist. Pt moved supine to and from sit with modified indep using bed rail. Sit to and from stand with verbal cues for safety to reach and push from bed ( also reminding him). Gait with RW 2 x 80' with SBA. Gait showed slightly flexed posture but normal gait pattern. BP 142//54- 154/55, 02sats 95%, HR 79-80. Time spent with pt 50 min. A- Pt mobility improved. [place] [id number] home with home health P- Will continue to follow to increas strength/mobility and safety skills.
--- NOTE | 2021-07-11 11:45 | NUR ---
Pt seen for skilled OT treatment. Pt resting comfortably in bed upon OT arrival with present. Pt reported he wants to go home today. Pt transferred supine > EOB independent utilizing bed rail. Pt engaged in therapeutic exercises including bicep curls, tricep extensions, rows, and shoulder flexion utilizing green theraband. Pt completed 2 sets of 10 for each exercise. When performing exericses, pt frequently lost balance leaning backward with feet coming off of the ground. Pt required verbal and tactile cues to lean forward and activate core for balance. Pt required to reach and touch therapist's hands in various planes without utilizing bed rail for support. With increased duration of task, pt was able to move in various planes without LOB. Pt then completed trunk rotations demonstrating improved abilty to maintain feet flat on floor. Pt was provided with HEP; pt verbalized understanding. Pt was able to scoot left and right independently in bed and return to resting position.
--- NOTE | 2021-07-11 11:50 | NUR ---
PT RESTING IN HIGH FOWLERS POSITION. HEART MONITOR IN PLACE. RESPIRATIONS EVEN AND UNLABORED. ALL SAFETY PRECAUTIONS IN PLACE WITH CALL LIGHT IN REACH.
[2021-07-11 13:26] LABS: HEMOGLOBIN 7.6 g/dl (14.0-18.0); MEAN CORPUSCULAR HGB 29.5 pG CALC (26.0-32.0); MEAN CORPUSCULAR HGB CONC 31.7 g/dL CAL (32.0-36.0); RED BLOOD COUNT 2.58 mill/uL (4.70-6.10); RED CELL DISTRI WIDTH 15.6 % (11.5-15.5)
[2021-07-11 13:52] LABS: ANION GAP 10 (6-22 (CALC)); BUN 27 mg/dL (8-23); BUN/CREATININE RATIO 26 (12-20 (CALC)); CARBON DIOXIDE 26 mmol/l (22-30); CHLORIDE 103 mmol/l (95-108); GFR > 60 ML/MIN (>=60 (CALC)); GFR FOR AFR.AMER. > 60 ML/MIN (>=60 (CALC)); POTASSIUM 4.6 mmol/l (3.5-5.1); SODIUM 135 mmol/l (137-146)
--- NOTE | 2021-07-11 14:15 | NUR ---
CONTACTED BY LAB ON REPEAT LABS FOR TODAY. FACILITY SERVICE ASSOCIATE VERIFED WITH NOHEMI CAMARGO, ORDERS TO HOLD REPEAT LABS DUE TO MORNING LABS BEING COLLECTED LATE. LAB INFORMED.
--- NOTE | 2021-07-11 16:30 | NUR ---
PT RESTING IN LOW FOWLERS POSITION .HEART MONITOR IN PLACE PT RESPIRATIONS EVEN AND UNLABORED. PT DENIES ADDITIONAL NEEDS AT THE MOMENT . ALL SAFETY PRECAUTIONS IN PLACE WITH CALL LIGHT IN REACH
--- NOTE | 2021-07-11 19:30 | NUR ---
RECEIVED REPORT FROM WALKER/MAYRA PAK. PT STABLE AT THIS TIME
--- NOTE | 2021-07-11 23:56 | NUR ---
Pt sleeping in bed. Call light within reach and bed alarm on.
[2021-07-12 04:19] VITALS: BP 142/58
--- NOTE | 2021-07-12 04:37 | NUR ---
pt sleepinb in bed om left side. Pt has call light within reach. Bed alarm on
[2021-07-12 07:02] VITALS: BP 125/54
[2021-07-12 08:26] LABS: HEMATOCRIT 25.3 % (39.0-50.0); HEMOGLOBIN 7.9 g/dl (14.0-18.0); IMMATURE GRANULOCYTES 0.3 % (0.0-5.0); MEAN CELL VOLUME 93.7 fL CALC (80.0-100.0); MEAN CORPUSCULAR HGB 29.3 pG CALC (26.0-32.0); MEAN CORPUSCULAR HGB CONC 31.2 g/dL CAL (32.0-36.0); NEUT# 4.76 thou/uL (1.82-7.42); RED BLOOD COUNT 2.7 mill/uL (4.70-6.10); RED CELL DISTRI WIDTH 15.5 % (11.5-15.5)
[2021-07-12 08:48] LABS: ALBUMIN 3.4 g/dL (3.2-5.0); ALKALINE PHOSPHATASE 53 u/l (38-126); ANION GAP 11 (6-22 (CALC)); BILIRUBIN, TOTAL 0.6 mg/dL (0.0-1.4); BUN 25 mg/dL (8-23); BUN/CREATININE RATIO 23 (12-20 (CALC)); CARBON DIOXIDE 27 mmol/l (22-30); CHLORIDE 105 mmol/l (95-108); CREATININE 1.1 mg/dL (0.7-1.3); GFR > 60 ML/MIN (>=60 (CALC)); GFR FOR AFR.AMER. > 60 ML/MIN (>=60 (CALC)); POTASSIUM 4.7 mmol/l (3.5-5.1); SGOT/AST 24 u/l (19-48); SODIUM 137 mmol/l (137-146); TOTAL PROTEIN 5.9 g/dL (6.3-8.2)
--- NOTE | 2021-07-12 08:53 | NUR ---
ASSESSMENT ALLOWED. PT STATES NO PAIN. TELE MONITOR IN PLACE, CONTINOUS MONITORIN [facility] ED. IVF INFUSING WITH NO COMPLICATION. IV LAC 20 FLUSHED. FALL/SAFTEY PRECAUTION IN PLACE. CALL LIGHT WITHIN REACH
[2021-07-12 10:20] VITALS: BP 105/45
--- NOTE | 2021-07-12 13:02 | NUR ---
Discharge instructions given. Patient verbalizes understanding of same. Discharged in stable condition via Wheelchair to Home with staff. All belongings sent with pt.
== END 2021-07-12 14:02 | disposition home health service (06) ==
LOC: ED 15:10 → ED-I 17:08 → ED 17:22 → MS2 17:23
PROVIDERS: Family Medicine; Nurse Practitioner; ADMIT Internal Medicine; ATTEND Internal Medicine
PROC: 30233N1 Transfusion of Nonautologous Red Blood Cells into Peripheral Vein, Percutaneous Approach (ICD-10-PCS; principal; 2021-07-10)
PROC: 30233N1 Transfusion of Nonautologous Red Blood Cells into Peripheral Vein, Percutaneous Approach (ICD-10-PCS; 2021-07-10)
DX: D62 Acute posthemorrhagic anemia (principal); K55.21 Angiodysplasia of colon with hemorrhage; I10 Essential (primary) hypertension; E11.40 Type 2 diabetes mellitus with diabetic neuropathy, unspecified; I49.5 Sick sinus syndrome; J44.9 Chronic obstructive pulmonary disease, unspecified; R64 Cachexia; R53.81 Other malaise; I25.10 Atherosclerotic heart disease of native coronary artery without angina pectoris; I48.91 Unspecified atrial fibrillation; N40.0 Benign prostatic hyperplasia without lower urinary tract symptoms; Z68.1 Body mass index [BMI] 19.9 or less, adult; Z86.73 Personal history of transient ischemic attack (TIA), and cerebral infarction without residual deficits; Z95.0 Presence of cardiac pacemaker; Z79.84 Long term (current) use of oral hypoglycemic drugs; Z74.2 Need for assistance at home and no other household member able to render care; Z87.891 Personal history of nicotine dependence; Z20.822 Contact with and (suspected) exposure to COVID-19
CPT/HCPCS: G0378; P9016

== ENCOUNTER 2021-11-25 09:11 | Emergency (ER) | payer MEDICARE ==
[~2021-11-25] VITALS: Ht 177.8 cm; Wt 66.0 kg
[~2021-11-25 09:11] MED LIST changes: +ASPIRIN81 MG PO; +FLUTICASON50 MCG/ACT NAB; +PROAIR HFA108 MCG/AC IN; +TRIAMCINOLONE A0.12 EX; +XYZAL ALLERGY 245 MG PO
[2021-11-25 09:19] VITALS: BP 124/66
[2021-11-25 09:31] VITALS: BP 142/61
[2021-11-25 10:00] VITALS: BP 135/50
[2021-11-25 10:31] VITALS: BP 131/51
[2021-11-25 10:54] VITALS: BP 120/80
== END 2021-11-25 10:55 | disposition home or self-care (01) ==
LOC: ED 09:11
DX: M79.621 Pain in right upper arm (principal); E11.9 Type 2 diabetes mellitus without complications; I10 Essential (primary) hypertension; I25.10 Atherosclerotic heart disease of native coronary artery without angina pectoris; Z95.0 Presence of cardiac pacemaker; Z79.84 Long term (current) use of oral hypoglycemic drugs

== ENCOUNTER 2022-04-29 10:54 | Day surgery (SDC) | payer MEDICARE ==
[~2022-04-29] VITALS: Ht 177.8 cm; Wt 65.8 kg
[2022-04-29 12:48] VITALS: BP 116/49
== END 2022-04-29 13:05 | disposition home or self-care (01) ==
LOC: ENDO 10:54 → ORM 13:35
PROVIDERS: ATTEND Internal Medicine Gastroenterology
PROC: 0DB98ZX Excision of Duodenum, Via Natural or Artificial Opening Endoscopic, Diagnostic (ICD-10-PCS; principal; 2022-04-29)
PROC: 0DB78ZX Excision of Stomach, Pylorus, Via Natural or Artificial Opening Endoscopic, Diagnostic (ICD-10-PCS; 2022-04-29)
DX: D50.0 Iron deficiency anemia secondary to blood loss (chronic) (principal); R19.5 Other fecal abnormalities; K29.70 Gastritis, unspecified, without bleeding; K44.9 Diaphragmatic hernia without obstruction or gangrene; I10 Essential (primary) hypertension; E11.42 Type 2 diabetes mellitus with diabetic polyneuropathy; E78.5 Hyperlipidemia, unspecified; Z79.84 Long term (current) use of oral hypoglycemic drugs; Z87.19 Personal history of other diseases of the digestive system